=== PATIENT | female | born 1950 | race Caucasian/White ===

== ENCOUNTER 2022-09-09 09:16 | Outpatient (REF) | payer MEDICARE, BC, SELFPAY ==
[2022-09-09 14:46] LABS: HCT 44.6 % (36.0-46.0); HGB 14.6 g/dL (11.2-15.7); MCH 27.8 pg (27.0-33.0); MCHC 32.7 % (32.0-36.0); MCV 85 fL (80-95); MPV 10.2 fL (8.0-11.0); Platelet Count 230 10^3/uL (130-400); RBC 5.25 10^6/uL (3.93-5.22); RDW 13.4 % (11.7-14.6); RDW-SD 41.5 fL; WBC 5.84 10^3/uL (4.4-10.8)
[2022-09-09 15:00] LABS: ALT 54 U/L (14-59); AST 30 U/L (15-37); Albumin 4.1 g/dL (3.4-5.0); Alkaline Phosphatase 99 U/L (46-116); Anion Gap 9.1 mmol/L (3-11); BUN 22 mg/dL (7-18); Bilirubin, Total 0.5 mg/dL (0.2-1.0); CO2 26.9 mmol/L (21.0-32.0); CREATININE 0.5 mg/dL (0.55-1.02); Calcium 9.9 mg/dL (8.5-10.1); Chloride 106 mmol/L (98-107); Estimated GFR 98.97 (mL/min/1.73m2); Glucose 91 mg/dL (74-106); Lipase 30 U/L (16-77); Potassium 4.8 mmol/L (3.5-5.1); Sodium 142 mmol/L (136-145); Total Protein 6.8 g/dL (6.4-8.2)
== END 2022-09-09 09:17 | disposition home or self-care (01) ==
LOC: NCHCN 09:16
PROVIDERS: PCP Family Medicine; Visit Provider Family Medicine
DX: R10.9 Unspecified abdominal pain (principal); K82.4 Cholesterolosis of gallbladder; R11.0 Nausea
CPT/HCPCS: 80053; 83690; 85027

== ENCOUNTER 2022-12-07 17:54 | Outpatient (REF) | payer MEDICARE, BC, SELFPAY | END 2022-12-07 17:55 | disposition home or self-care (01) | LOC: NCHCN 17:54 | PROVIDERS: PCP Family Medicine; Visit Provider Family Medicine | DX: N39.0 Urinary tract infection, site not specified (principal) | CPT/HCPCS: 87086 ==

== ENCOUNTER 2023-02-02 14:38 | Outpatient (CLI) | payer MEDICARE, BC, SELFPAY ==
[2023-02-02 16:44] LABS: HCT 42.2 % (36.0-46.0); HGB 14.2 g/dL (11.2-15.7); MCH 28.6 pg (27.0-33.0); MCHC 33.6 % (32.0-36.0); MCV 85 fL (80-95); MPV 9.3 fL (8.0-11.0); Platelet Count 177 10^3/uL (130-400); RBC 4.97 10^6/uL (3.93-5.22); RDW 13.1 % (11.7-14.6); RDW-SD 40.5 fL; WBC 5.38 10^3/uL (4.4-10.8)
[2023-02-02 16:46] LABS: INR 0.9 (0.9-1.1); PTT Activated 25.1 sec (21.5-31.9); Prothrombin Time 9.4 sec (9.3-11.0)
[2023-02-02 17:18] LABS: Anion Gap 11.2 mmol/L (3-11); BUN 17 mg/dL (7-18); CO2 24.8 mmol/L (21.0-32.0); CREATININE 0.5 mg/dL (0.55-1.02); Calcium 9.6 mg/dL (8.5-10.1); Chloride 106 mmol/L (98-107); Estimated GFR 98.97 (mL/min/1.73m2); Glucose 103 mg/dL (74-106); Potassium 4.2 mmol/L (3.5-5.1); Sodium 142 mmol/L (136-145)
[2023-02-02 19:39] LABS: Vitamin D 25 Total 55.1 ng/mL (30-100)
== END 2023-02-02 14:39 | disposition home or self-care (01) ==
LOC: LBO 14:39
PROVIDERS: PCP Family Medicine; Visit Provider Nurse Practitioner
DX: E78.5 Hyperlipidemia, unspecified; D50.9 Iron deficiency anemia, unspecified; M54.2 Cervicalgia
CPT/HCPCS: 36415; 80048; 82306; 85027; 85025; 85610; 85730

== ENCOUNTER 2023-05-18 11:59 | Outpatient (REF) | payer MEDICARE, BC, SELFPAY ==
[2023-05-18 14:41] LABS: Iron 61 ug/dL (50-170); Total Iron Binding Capacity 331 ug/dL (250-450); Transferrin Sat 18 % (15-50)
[2023-05-18 15:05] LABS: Vitamin D 25 Total 50.8 ng/mL (30-100)
[2023-05-18 17:07] LABS: Ferritin 60 ng/mL (8-252); Folate > 20.0 ng/mL (8.6-20.0); Vitamin B12 1430 pg/mL (193-986)
[2023-05-22 22:55] LABS: Thiamine (Vitamin B1), WB 163 nmol/L (70-180)
== END 2023-05-18 12:00 | disposition home or self-care (01) ==
LOC: NCHCN 11:59
PROVIDERS: PCP Family Medicine; Visit Provider Family Medicine
DX: I44.4 Left anterior fascicular block (principal); M50.30 Other cervical disc degeneration, unspecified cervical region; R78.89 Finding of other specified substances, not normally found in blood; Z98.84 Bariatric surgery status
CPT/HCPCS: 82306; 82607; 82728; 82746; 83540; 83550; 84425

== ENCOUNTER → 2023-09-28 01:07 | Outpatient (CLI) | payer MEDICARE, BC, SELFPAY ==
--- NOTE | 2023-09-28 11:24 | DI.RAD_ITS ---
Exam(s) XR HIP LT COMPLETE AP PELVIS XR SACROILIAC JOINTS EXAM: XR HIP LT COMPLETE AP PELVIS CLINICAL HISTORY: PAIN LEFT HIP JOINT M25.552. TECHNIQUE: 2D digital imaging was performed. Five views. COMPARISON: CR XR SACROILIAC JOINTS from 09/28/2023 FINDINGS: BONES: No acute fracture is present. No bony destructive lesion is seen. Prior laminectomy and hard ahmadi noted lower lumbar spine. JOINTS: No dislocation present. Mild left hip joint space narrowing. Mild acetabular spurring. Mi ld spurring at the SI joints. No sclerosis or erosions. SOFT TISSUE: Rounded soft tissue calcification in soft tissues adjacent to ileum. IMPRESSION: Mild degenerative changes of the left hip and SI joints. DATA REPOSITORY: RADIATION DOSE DELIVERED:
== END ==
PROVIDERS: PCP Family Medicine; Visit Provider Family Medicine
DX: M16.12 Unilateral primary osteoarthritis, left hip (principal)
CPT/HCPCS: 72202; 73502

== ENCOUNTER 2024-01-25 15:30 | Outpatient (REF) | payer MEDICARE, BC, SELFPAY ==
[2024-01-25 16:06] LABS: Anion Gap 10.6 mmol/L (3-11); BUN 17 mg/dL (7-18); CO2 26.4 mmol/L (21.0-32.0); CREATININE 0.5 mg/dL (0.55-1.02); Calcium 9.6 mg/dL (8.5-10.1); Chloride 106 mmol/L (98-107); Estimated GFR 98.36 (mL/min/1.73m2); Glucose 88 mg/dL (74-106); Potassium 4.8 mmol/L (3.5-5.1); Sodium 143 mmol/L (136-145); TSH (W/Ref FT4) 1.02 uIU/mL (0.36-3.74)
[2024-01-26 14:09] LABS: Albumin 66.3 % (55.8-66.1); Albumin g/dL 4.5 g/dL (3.6-5.2); Total Protein 6.8 g/dL (6.3-8.2)
== END 2024-01-25 15:31 | disposition home or self-care (01) ==
LOC: NCHCN 15:30
PROVIDERS: PCP Family Medicine; Visit Provider Family Medicine
DX: G62.9 Polyneuropathy, unspecified (principal); E78.5 Hyperlipidemia, unspecified
CPT/HCPCS: 80048; 83735; 84165; 84443

== ENCOUNTER 2024-06-19 10:18 | Outpatient (CLI) | payer MEDICARE, BC, SELFPAY | END 2024-06-19 10:19 | disposition home or self-care (01) | PROVIDERS: PCP Family Medicine; Visit Provider Family Medicine | DX: R55 Syncope and collapse (principal) | CPT/HCPCS: 93246 ==

== ENCOUNTER 2024-07-03 10:12 | Outpatient (REF) | payer MEDICARE, BC, SELFPAY ==
[2024-07-04 15:34] LABS: Albumin 65.4 % (55.8-66.1); Albumin g/dL 4.3 g/dL (3.6-5.2); Total Protein 6.6 g/dL (6.3-8.2)
== END 2024-07-03 10:13 | disposition home or self-care (01) ==
LOC: NCHCN 10:12
PROVIDERS: PCP Family Medicine; Visit Provider Nurse Practitioner Family
DX: G62.9 Polyneuropathy, unspecified (principal)
CPT/HCPCS: 84165

== ENCOUNTER 2024-07-19 16:51 | Outpatient (CLI) | payer MEDICARE, BC, SELFPAY ==
[2024-07-19 16:21] LABS: Abs Immature Grans 0.02 10^3/uL (0.0-0.06); Absolute Basophil Count 0.04 10^3/uL (0.0-0.2); Absolute Lymphocyte Count 1.31 10^3/uL (1.2-3.4); Absolute Monocyte Count 0.33 10^3/uL (0.1-0.8); Absolute Neutrophil Count 3.65 10^3/uL (1.2-6.7); Basophils % 0.7 %; Eosinophils % 3.6 %; HCT 40.2 % (36.0-46.0); HGB 13.3 g/dL (11.2-15.7); Immature Grans % 0.4 %; Lymphocytes % 23.6 %; MCH 27.2 pg (27.0-33.0); MCHC 33.1 % (32.0-36.0); MCV 82 fL (80-95); MPV 8.7 fL (8.0-11.0); Monocytes % 5.9 %; Neutrophils % 65.8 %; Platelet Count 145 10^3/uL (130-400); RBC 4.89 10^6/uL (3.93-5.22); RDW 14.6 % (11.7-14.6); WBC 5.55 10^3/uL (4.4-10.8)
[2024-07-19 16:54] LABS: ALT 26 U/L (14-59); AST 18 U/L (15-37); Albumin 3.9 g/dL (3.4-5.0); Alkaline Phosphatase 89 U/L (46-116); Anion Gap 11.2 mmol/L (3-11); BUN 24 mg/dL (7-18); Bilirubin, Total 0.76 mg/dL (0.2-1.0); CO2 23.8 mmol/L (21.0-32.0); CREATININE 0.8 mg/dL (0.55-1.02); Calcium 9.4 mg/dL (8.5-10.1); Chloride 106 mmol/L (98-107); Estimated GFR 76.79 (mL/min/1.73m2); Glucose 141 mg/dL (74-106); Potassium 4.3 mmol/L (3.5-5.1); Sodium 141 mmol/L (136-145); Total Protein 6.6 g/dL (6.4-8.2)
[2024-07-20 19:24] LABS: HIV-1/2 Ag & Ab Screen Negative (Negative)
[2024-07-23 10:02] LABS: IgA 97 mg/dL (85-499); IgG 507 mg/dL (610-1616); IgM 17 mg/dL (35-242); Kappa Free Light Chain 1.08 mg/dL (0.33-1.94); Lambda Free Light Chain 0.89 mg/dL (0.57-2.63)
[2024-07-23 12:17] LABS: Lyme Ab w Rflx to Lyme Confirm Negative (Negative)
[2024-07-23 14:42] LABS: ANA Interpretation Negative (Negative)
[2024-07-23 15:43] LABS: Albumin 67.1 % (55.8-66.1); Albumin g/dL 4.1 g/dL (3.6-5.2); Immunotyping, Serum (See Note); Total Protein 6.1 g/dL (6.3-8.2)
== END 2024-07-19 16:52 | disposition home or self-care (01) ==
LOC: LBO 16:53
PROVIDERS: PCP Family Medicine; Visit Provider Family Medicine
DX: D80.1 Nonfamilial hypogammaglobulinemia (principal); R53.83 Other fatigue
CPT/HCPCS: 36415; 80053; 82784; 87389; 83883; 84155; 84165; 85025; 86038; 86320; 86618

== ENCOUNTER 2024-07-26 00:08 | Outpatient (CLI) | payer MEDICARE, BC, SELFPAY ==
--- NOTE | 2024-07-26 | DI.CT_ITS ---
Exam(s) CT ABDOMEN PELVIS W EXAM: CT ABDOMEN PELVIS W CLINICAL HISTORY: SPLENOMEGALY, R16.1, PROFOUND FATIGUE, LT SIDE ABD PAIN. TECHNIQUE: Imaging Protocol: Axial computed tomography images with coronal and sagittal reformatted images were created and reviewed CONTRAST MATERIAL: Intravenous: Omnipaque 350 Contrast volume:75 ml Oral: yes COMPARISON: No exams were available for comparison FINDINGS: ABDOMEN and PELVIS: Lung Bases: No acute findings. Elevated right diaphragm. Liver: Elongated right lobe of the liver. Overall normal liver size. Normal density. No suspicious mass. Portal vein appears normal. Gallbladder and biliary tract: No radiodense calculus. No biliary dilation. Pancreas: Normal density. No abnormal calcifications or inflammatory process. No evidence of mass. Spleen: Enlarged at 20 cm in length. The lesion. Normal attenuation. Small accessory spleen seen at the hilum. Splenic vein and artery appear intact. Kidneys: Normal size, contour and axis. No radiodense stones. No obstructive uropathy. No suspicious masses seen. Adrenal glands: No masses seen. Vasculature: Abdominal aorta non-dilated. Soft tissues: Small fat containing umbilical hernia. Small small fat containing hernia above the lev el of the umbilicus. Bladder: No gross wall thickening. No calculi.No focal mass. Bowel: Suture material at fundus of stomach. No obstruction. No bowel wall thickening. Appendix no rmal. Mild diverticulosis. No evidence of diverticulitis. Normal quantity of stool. Peritoneal cavity: No ascites. No focal collection. No mesenteric inflammatory response. No free air . Bones: Postsurgical and degenerative changes. Reproductive organs: Retroverted uterus with small fibroids. Lymph nodes: No pathologically enlarged lymph nodes. IMPRESSION:: Splenomegaly. No focal splenic lesion. No evidence of adenopathy. Unexpected findings RADIATION DOSE DELIVERED: 950.65mGy.cm Total DLP DATA REPOSITORY: All CT scans at this facility are submitted to the National Radiology Data Registry (NRDR) Dose Index Registry (DIR) with the [employer] (A[employer]). RADIATION OPTIMIZATION: All CT scans at this facility use at least one of these dose optimization te chniques: automated exposure control; mA and/or kV adjustment per patient size (includes targeted exa ms where dose is matched to clinical indication); or iterative reconstruction.
[2024-07-26] MEDS: Barium Sulfate 2% W/V-Creamy Vanilla Smoothie 450 ML BTL PO ×2 (08:52→08:53)
[2024-07-26] MEDS: Omnipaque 350 MG/ML 100 ML BTL IJ (10:34)
[2024-07-26] MEDS: Normal Saline - Diluent 50 ML VIAL IJ (10:36)
== END 2024-07-26 00:28 ==
LOC: DI 00:08
PROVIDERS: PCP Family Medicine; Visit Provider Family Medicine
DX: R16.1 Splenomegaly, not elsewhere classified (principal)
CPT/HCPCS: 74177; J3490

== ENCOUNTER 2024-08-06 21:11 | Outpatient (REF) | payer MEDICARE, BC, SELFPAY ==
[2024-08-06 21:23] LABS: ESR 9 mm/hr (0-30)
[2024-08-06 21:57] LABS: Calculated LDL 109 mg/dL (<100); Cholesterol 183 mg/dL (<200); HDL Cholesterol 51 mg/dL (40-60); Triglyceride 117 mg/dL (<150)
[2024-08-06 22:08] LABS: LDH 289 U/L (81-234); Uric Acid 4.8 mg/dL (2.6-6.0)
[2024-08-07 17:32] LABS: CRP, High Sensitivity 3.51 mg/L (See Note)
[2024-08-07 19:08] LABS: Hepatitis C Ab w Rflx HCV PCR Negative (Negative)
[2024-08-08 12:08] LABS: EBNA IgG Positive (Negative); EBV Interpretation (See Note); VCA IgG Positive (Negative); VCA IgM Negative (Negative)
[2024-08-09 10:40] LABS: CMV Ab, IgG Negative (Negative); CMV Ab, IgM Negative (Negative)
== END 2024-08-06 21:12 | disposition home or self-care (01) ==
LOC: NCHCN 21:11
PROVIDERS: PCP Family Medicine; Visit Provider Family Medicine
DX: R16.1 Splenomegaly, not elsewhere classified (principal); Z13.220 Encounter for screening for lipoid disorders; L28.2 Other prurigo
CPT/HCPCS: 80061; 85652; 86141; 86803; 83615; 84550; 86644; 86645; 86664; 86665

== ENCOUNTER 2024-08-08 02:12 | Outpatient (CLI) | payer MEDICARE, BC, SELFPAY ==
--- NOTE | 2024-08-08 | DI.RAD_ITS ---
Exam(s) XR CHEST 2V PA LATERAL EXAM: XR CHEST 2V PA LATERAL CLINICAL HISTORY: ? CAUSE OF SPLENOMEGALY,R16.1,FATIGUE,RASH,? INFECTION,LYMPHADENOPATHY, TECHNIQUE: 2D digital imaging was performed of the chest. Two images were obtained. PA and lateral views were obtained. COMPARISON: CT CT ABDOMEN PELVIS W from 07/26/2024 FINDINGS: MEDIASTINUM: Normal. HEART: Normal. PULMONARY VASCULATURE: Normal. LUNGS: Clear. PLEURAL SPACE: No pleural effusion or pneumothorax. BONE:Within normal limits for the patient's age. Postsurgical changes of a anterior cervical disc fu pollo are present. OTHER FINDINGS:There is stable elevation of the right hemidiaphragm. IMPRESSION: No acute pulmonary findings. DATA REPOSITORY: RADIATION DOSE DELIVERED:
== END 2024-08-08 02:32 ==
LOC: DI 02:12
PROVIDERS: PCP Family Medicine; Visit Provider Family Medicine
DX: R16.1 Splenomegaly, not elsewhere classified (principal)
CPT/HCPCS: 71046

== ENCOUNTER 2024-08-08 04:03 | Outpatient (CLI) | payer MEDICARE, BC, SELFPAY ==
[2024-08-09 18:36] LABS: Bile Acids, Total 9 mcmol/L (<=10)
== END 2024-08-08 04:04 | disposition home or self-care (01) ==
PROVIDERS: PCP Family Medicine; Visit Provider Family Medicine
DX: R16.1 Splenomegaly, not elsewhere classified (principal); Z13.220 Encounter for screening for lipoid disorders; L28.2 Other prurigo
CPT/HCPCS: 36415; 71046; 82239

== ENCOUNTER 2024-08-14 16:58 | Outpatient (REF) | payer MEDICARE, BC, SELFPAY ==
--- NOTE | 2024-08-14 15:00 | SKI_PTH ---
PATIENT: Beata Alonzo LOC: [facility] U#:[id number] AGE/SX: 74/F ROOM: RE08/14/[address]: Jennifer Fisher : 1950 BED: DIS: 08/14/2024 SPEC #: [id number] RECD: 08/15/24 12:41 STATUS: BRAXTON HENRY #: [id number] JEIN: 08/14/24 15:[address]: Jennifer Fisher DEPT: Surgical Specimen RECD BY: Kayla Peguero Tissues: 1 - SKIN BIOPSY(SHAVE/PUNCH) 2 - SKIN BIOPSY(SHAVE/PUNCH) Procedures: SKIN LEVEL 4 Comments: [id number]
== END 2024-08-14 16:59 | disposition home or self-care (01) ==
LOC: NCHCN 16:58
PROVIDERS: PCP Family Medicine; Visit Provider Family Medicine
DX: L28.2 Other prurigo (principal)
CPT/HCPCS: 88305

== ENCOUNTER 2024-08-16 08:52 | Outpatient (CLI) | payer MEDICARE, BC, SELFPAY ==
--- NOTE | 2024-08-16 09:03 | CER_ITS ---
Date of service: 08/16/24 Time of Service: 09:03 Cardiac Event Recorder Referring Provider:: Jennifer Fisher Indications:: Syncope Cardiac Event Note: This is a cardiac event monitor. Patient was monitored for 11 days and 23 hours. Rhythm throughout was sinus with an average heart rate of 73. Minimum was 45, maximum 134 There were rare ventricular ectopic beats There were occasional atrial premature beats. Self-limited atrial runs occu rred. The longest of these was 20 beats in duration There was no atrial fibrillation, no high-grade AV block, no pauses greater than 3 seconds. No symptoms were reported
== END 2024-08-16 08:53 | disposition home or self-care (01) ==
LOC: CARDOPNVT 08:52
PROVIDERS: PCP Family Medicine; Visit Provider Internal Medicine Cardiovascular Disease
DX: R55 Syncope and collapse (principal); I49.1 Atrial premature depolarization
CPT/HCPCS: 93248

== ENCOUNTER 2024-08-22 15:40 | Outpatient (CLI) | payer MEDICARE, BC, SELFPAY ==
[2024-08-22 16:59] LABS: Ferritin 75 ng/mL (8-252)
[2024-08-23 16:33] LABS: Leukemia/Lymphoma by FC (Blood (See below)
== END 2024-08-22 15:41 | disposition home or self-care (01) ==
LOC: LBO 15:43
PROVIDERS: PCP Family Medicine; Visit Provider Family Medicine
DX: R16.1 Splenomegaly, not elsewhere classified (principal)
CPT/HCPCS: 36415; 88185; 82728; 88184; 88189

== ENCOUNTER 2024-11-01 14:31 | Outpatient (REF) | payer MEDICARE, BC, SELFPAY ==
[2024-11-01 15:27] LABS: Abs Immature Grans 0.02 10^3/uL (0.0-0.06); Absolute Basophil Count 0.04 10^3/uL (0.0-0.2); Absolute Eosinophil Count 0.24 10^3/uL (0.0-0.7); Absolute Lymphocyte Count 1.26 10^3/uL (1.2-3.4); Absolute Monocyte Count 0.34 10^3/uL (0.1-0.8); Absolute Neutrophil Count 1.91 10^3/uL (1.2-6.7); Eosinophils % 6.3 %; HCT 36.5 % (36.0-46.0); HGB 11.3 g/dL (11.2-15.7); Immature Grans % 0.5 %; Lymphocytes % 33.1 %; MCV 81 fL (80-95); MPV 9.3 fL (8.0-11.0); Monocytes % 8.9 %; Neutrophils % 50.2 %; Platelet Count 152 10^3/uL (130-400); RBC 4.52 10^6/uL (3.93-5.22); RDW 16.1 % (11.7-14.6); RDW-SD 47.3 fL; WBC 3.81 10^3/uL (4.4-10.8)
[2024-11-01 16:06] LABS: Anion Gap 10.5 mmol/L (3-11); BUN 17 mg/dL (7-18); CO2 28.5 mmol/L (21.0-32.0); CREATININE 0.6 mg/dL (0.55-1.02); Calcium 10.1 mg/dL (8.5-10.1); Chloride 106 mmol/L (98-107); Estimated GFR 93.55 (mL/min/1.73m2); Ferritin 97 ng/mL (8-252); Glucose 105 mg/dL (74-106); Potassium 4.8 mmol/L (3.5-5.1); Sodium 145 mmol/L (136-145)
[2024-11-01 16:12] LABS: Iron 32 ug/dL (50-170); Total Iron Binding Capacity 329 ug/dL (250-450); Transferrin Sat 10 % (15-50)
== END 2024-11-01 14:32 | disposition home or self-care (01) ==
LOC: NCHCN 14:31
PROVIDERS: PCP Family Medicine; Visit Provider Family Medicine
DX: I10 Essential (primary) hypertension (principal); R16.1 Splenomegaly, not elsewhere classified
CPT/HCPCS: 80048; 82728; 83540; 83550; 85025

== ENCOUNTER 2025-02-13 02:40 | Outpatient (CLI) | payer MEDICARE, BC, SELFPAY ==
[2025-02-13 09:32] LABS: Abs Immature Grans 0.01 10^3/uL (0.0-0.06); HCT 37.9 % (36.0-46.0); HGB 11.6 g/dL (11.2-15.7); Immature Grans % 0.1 %; MCH 22.0 pg (27.0-33.0); MCHC 30.6 % (32.0-36.0); MCV 72 fL (80-95); MPV 9.1 fL (8.0-11.0); Platelet Count 564 10^3/uL (130-400); RBC 5.28 10^6/uL (3.93-5.22); RDW 16.6 % (11.7-14.6); RDW-SD 41.9 fL; WBC 8.39 10^3/uL (4.4-10.8)
[2025-02-13 10:02] LABS: ALT 103 U/L (14-59); AST 52 U/L (15-37); Albumin 3.7 g/dL (3.4-5.0); Alkaline Phosphatase 381 U/L (46-116); Anion Gap 8.7 mmol/L (3-11); BUN 19 mg/dL (7-18); Bilirubin, Total 0.5 mg/dL (0.2-1.0); CO2 27.3 mmol/L (21.0-32.0); Calcium 9.7 mg/dL (8.5-10.1); Chloride 104 mmol/L (98-107); Estimated GFR 97.75 (mL/min/1.73m2); Ferritin 14 ng/mL (8-252); Glucose 100 mg/dL (74-106); Potassium 4.2 mmol/L (3.5-5.1); Sodium 140 mmol/L (136-145); Total Protein 7.1 g/dL (6.4-8.2)
[2025-02-13 10:12] LABS: Anisocytosis 1+; Microcytosis 2+; Ovalocytes 2+
== END 2025-02-13 02:41 | disposition home or self-care (01) ==
LOC: LBO 02:40
PROVIDERS: PCP Family Medicine; Visit Provider Nurse Practitioner Family
DX: D64.9 Anemia, unspecified (principal); R16.1 Splenomegaly, not elsewhere classified
CPT/HCPCS: 36415; 80053; 82728; 85025

== ENCOUNTER 2025-03-04 16:21 | Emergency (ER) | payer MEDICARE, BC, SELFPAY ==
[2025-03-04 16:24] VITALS: BP 160/68; PULSE 105; RESP 16; TEMP 36.7; O2SAT 93
[2025-03-04 18:00] VITALS: BP 135/73; PULSE 72; RESP 16; O2SAT 94
[2025-03-04] MEDS: Oxymetazolone 0.05% SPRAY 15 ML BTL NS (18:59)
[2025-03-04] MEDS: Silver Nitrate Stick 1 EACH (20:41)
[2025-03-04 20:49] VITALS: BP 143/88; PULSE 70; RESP 16; O2SAT 96
--- NOTE | 2025-03-04 23:12 | W.ED.GENAD ---
Discharge Plan Disposition Patient Disposition: Home Discharge Details Clinical Impression: Epistaxis Primary Care Provider: Jennifer Fisher ED Provider: Erma Cervantes Home Meds and New Rx's Prescriptions: No Action losartan 100 mg tablet 100 mg PO DAILY duloxetine 60 mg capsule,delayed release(DR/EC) 60 mg PO DAILY cholecalciferol (vitamin D3) 50 mcg (2,000 unit) tablet 50 mcg PO DAILY mecobalamin (vitamin B12) [B12 Active] 1 tab PO DAILY clobetasol 0.05 % cream 1 applic TOPICAL BID Patient Comments: APPLY A THIN LAYER TO THE AFFECTED AREA(S) BY TOPICAL ROUTE 2 TIMES PER DAY NEEDED, do not use for longer than 2 weeks in a row. magnesium 1 tab PO DAILY [place]-3 350 mg-235 mg- 90 mg-597 mg capsule,delayed release(DR/EC) 1 cap PO DAILY Discharge Instructions Instructions: Nosebleeds ED Additional Instructions: Please call your primary care provider first thing in the morning to schedule follow-up appointment We were able to localize a small area that was bleeding in your left nare. This was cauterized using silver nitrate. Do not blow your nose, pick at your nose, or insert in anything into your nose for the next 2 to 3 days. If you develop a nosebleed please apply the clamp for 15 minutes (no peeking!); if nosebleeds persist, you may use the Afrin 2 sprays and then reapply the clamp. I recommend the use humidifier at bedside. A thin layer of Vaseline in your nasal passages may also help with dryness and prevent rebleeding. Return to emergency care if you develop new uncontrollable nosebleeds, lightheadedness/palpitations, other sources of bleeding such as gum bleeding or rectal bleeding, or if you are very worried you need to be rechecked again immediate Referrals: Jennifer Fisher [Primary Care Provider, Medicine] Discharge Data Discharge Date/Time-TO BE ENTERED AT DEPARTURE: 03/04/25 20:49 HPI General Date/Time Provider Initiated Documentation: 03/04/25 17:01. HPI Narrative: Beata is a 74-year-old female who presents to the emergency department today for evaluation of epistaxis. She reports that she has had frequent nosebleeds for the last week, initially mild but has intensified over the weekend. Yesterday she had 3 episodes, today 2 episodes. Most recent 1 occurred 2 hours ago and being the most severe. Bleeding is attributed to a sore spot under the nasal bone in the left nare. She denies associated fever/chills, dizziness, fainting spells, gum bleeding, bruising, rectal bleeding, hematuria, chest pain, palpitations, nausea/vomiting, abdominal pain. She was sent to the emergency department by PCP for cauterization. PMH significant for HTN, anemia, and lymphoma. She is on baby aspirin daily. She had had a splenectomy in 2024. Related Data Home Medications ?Medication ?Instructions ?Recorded ?Confirmed cholecalciferol (vitamin D3) 50 50 mcg PO DAILY 03/04/25 03/04/25 mcg (2,000 unit) tablet clobetasol 0.05 % topical cream 1 applic topical BID 03/04/25 03/04/25 duloxetine 60 mg capsule,delayed 60 mg PO DAILY 03/04/25 03/04/25 release losartan 100 mg tablet 100 mg PO DAILY 03/04/25 03/04/25 magnesium 1 tab PO DAILY 03/04/25 03/04/25 mecobalamin (vitamin B12) 1 tab PO DAILY 03/04/25 03/04/25 omega 3 350 mg-dha 235 mg-epa 90 1 cap PO DAILY 03/04/25 03/04/25 mg-fish oil 597 mg capsule,delay rel ([place]-3) Allergies Allergy/AdvReac Type Severity Reaction Status Date / Time nickel Allergy Intermediate Skin Rash Unverified 03/04/25 16:27 lisinopril AdvReac Intermediate Other (See Verified 03/04/25 16:27 Comment) General Stated Complaint: Epistaxis LAKHWINDER: 3 Exam Narrative Exam Narrative: General Appearance: Normal. Pt very well appearing, in no acute distress Vital signs: Within normal limits. Tachycardia initially upon arrival, resolved. HEENT: 1 cm linear superficial laceration noted to nasal septum in left nare. Scant active bleeding, scant bloody mucus noted in posterior oropharynx. Skin: Warm and dry, no rash. Psychiatric: Normal. Course Vital Signs Vital signs: Vital Signs Temperature 36.7 C 03/04/25 16:24 Pulse 105 H 03/04/25 16:24 Respiratory Rate 16 03/04/25 16:24 Blood Pressure 160/68 H 03/04/25 16:24 Pulse Oximetry 93 08/04/25 16:24 Temperature 36.7 C 03/04/25 16:24 Temperature Source Oral 03/04/25 16:24 Pulse 70 03/04/25 20:49 Respiratory Rate 16 03/04/25 20:49 Blood Pressure 143/88 H 03/04/25 20:49 Blood Pressure Mean 93 03/04/25 18:00 Blood Pressure Position Sitting 03/04/25 18:00 Pulse Oximetry 96 03/04/25 20:49 Oxygen Delivery Method Room Air 03/04/25 16:24 Oxygen Flow Rate 0 03/04/25 16:24 Pain Level 0 03/04/25 16:24 Medical Decision Making Initial Assessment: 74-year-old female with frequent nosebleeds for the past week, most severe episode today. No unusual dizziness or other bleeding symptoms. On baby aspirin. History and presentation consistent with uncomplicated anterior epistaxis. No unusual dizziness or other bleeding symptoms concerning for acutely worsening anemia/thrombocytopenia or liver dysfunction requiring emergent blood work at this time. History not concerning for traumatic origin of epistaxis Patient was observed in the emergency department, she did develop some increased bleeding. 2 sprays of Afrin and nasal clamp provided with good cessation of epistaxis. At this time it was possible to visualize the superficial laceration and on the nasal septum, which was cauterized with silver nitrate. Patient was observed further, no repeat bleeding. I did provide extensive education on management of epistaxis with patient, who had been blowing her nose and tilting her head back to manage nosebleeds, which is likely contributory to the blood noted in the mucus in the back of her throat. I reviewed use of nasal clamp, Afrin, tilting head forward, and environmental changes such as humidifier. Clinical Impression: - Anterior epistaxis Disposition: Recommend close follow-up with PCP and ENT referral for further evaluation/management. Provided Afrin and nasal clamp, along with instructions on use. Reviewed red flags indicate need for return to emergency care. Patient voices agreement with plan of care - Discharge home. Return if bleeding persists or worsens. - Follow-Up: Follow up with cancer center for lymphoma care. Patient Education: Nosebleed management. Return precautions discussed. Patient consented to the use of JAK PFSH All Active Problems (Updated 03/04/25 @ 20:34 by Erma Lino) Epistaxis (Acute) Social History Smoking/Tobacco Use Status: Former Tobacco Use Quit Date: 05/04/93 Smoking risk assessment performed?: Yes Alcohol Intake: never Drug use: Never Substance use type: does not use Do you feel safe at home: Yes Do you feel safe in your relationship?: Yes
== END 2025-03-04 20:49 | disposition home or self-care (01) ==
PROVIDERS: Emergency Provider Nurse Practitioner Family; PCP Family Medicine
DX: R04.0 Epistaxis (principal); I10 Essential (primary) hypertension
CPT/HCPCS: 30903

== ENCOUNTER 2025-04-17 02:13 | Outpatient (CLI) | payer MEDICARE, BC, SELFPAY ==
[2025-04-17 08:07] LABS: Abs Immature Grans 0.02 10^3/uL (0.0-0.06); HCT 44.0 % (36.0-46.0); HGB 14.4 g/dL (11.2-15.7); Immature Grans % 0.2 %; MCH 26.5 pg (27.0-33.0); MCHC 32.7 % (32.0-36.0); MCV 81 fL (80-95); MPV 8.9 fL (8.0-11.0); Platelet Count 472 10^3/uL (130-400); RBC 5.44 10^6/uL (3.93-5.22); RDW 24.5 % (11.7-14.6); RDW-SD 67.3 fL; WBC 9.64 10^3/uL (4.4-10.8)
[2025-04-17 08:39] LABS: ALT 73 U/L (14-59); AST 42 U/L (15-37); Albumin 3.7 g/dL (3.4-5.0); Alkaline Phosphatase 227 U/L (46-116); Anion Gap 6.9 mmol/L (3-11); BUN 18 mg/dL (7-18); Bilirubin, Total 0.5 mg/dL (0.2-1.0); CO2 29.1 mmol/L (21.0-32.0); Calcium 10.0 mg/dL (8.5-10.1); Chloride 105 mmol/L (98-107); Estimated GFR 97.14 (mL/min/1.73m2); Ferritin 62 ng/mL (8-252); Glucose 98 mg/dL (74-106); Potassium 4.4 mmol/L (3.5-5.1); Sodium 141 mmol/L (136-145); Total Protein 6.8 g/dL (6.4-8.2)
[2025-04-17 08:48] LABS: Acanthocytes 1+
[2025-04-17 08:49] LABS: Anisocytosis 2+; Ovalocytes 2+
[2025-04-17 08:50] LABS: Schistocytes 1+
== END 2025-04-17 02:14 | disposition home or self-care (01) ==
LOC: LBO 02:13
PROVIDERS: PCP Family Medicine; Visit Provider Nurse Practitioner Family
DX: D64.9 Anemia, unspecified (principal); R16.1 Splenomegaly, not elsewhere classified
CPT/HCPCS: 36415; 80053; 82728; 85025

== ENCOUNTER 2025-07-04 15:40 | Inpatient (IN) | payer MEDICARE, BC, SELFPAY ==
[2025-07-04] VITALS (37 sets, daily range): BP systolic 127–164; BP diastolic 46–138; PULSE 84–102; RESP 15–29; TEMP 36.9–37.1; O2SAT 89–96
--- NOTE | 2025-07-04 15:45 | DI.RAD_ITS ---
Exam(s) XR PORTABLE CHEST AP EXAM: XR PORTABLE CHEST AP CLINICAL HISTORY: Shortness of breath TECHNIQUE: 2D digital imaging was performed of the chest. One image was obtained. An AP view was obtained. COMPARISON: CR XR CHEST 2V PA LATERAL from 08/08/2024 FINDINGS: MEDIASTINUM: Normal. HEART: Normal. PULMONARY VASCULATURE: Normal. LUNGS: Clear. PLEURAL SPACE: No pleural effusion or pneumothorax. BONE:Within normal limits for the patient's age. OTHER FINDINGS:There is again seen elevation of the right hemidiaphragm. There are dilated loops of small and large bowel beneath the hemidiaphragm which may represent an ileus. IMPRESSION: No acute pulmonary findings. DATA REPOSITORY: RADIATION DOSE DELIVERED:
--- NOTE | 2025-07-04 15:45 | RT.EKG_ITS ---
APPROVED REPORT Exam: Resting ECG Reason for Exam: Chest pain Patient Location: E HR:101 bpm ECG Measurements Heart Rate 101 AXIS [place] 159 P 13 QRSd 91 QRS -54 QT 334 T 81 QTc 434 Conclusion Sinus tachycardia...rate> 99 Left anterior fascicular block...axis(240,-40), init forces inf Probable left ventricular hypertrophy...(RaVL+SV3)xQRSd >300 No Occlusion [place]
--- NOTE | 2025-07-04 15:47 | W.ED.GENAD ---
Discharge Plan Discharge Details Chief Complaint: RespSymp Primary Care Provider: Jennifer Fisher ED Provider: Ryland Lovell Home Meds and New Rx's Prescriptions: No Action multivitamin Tablet 1 tab PO DAILY acetaminophen [Tylenol] 325 mg tablet 325 mg PO Q6H PRN hydroxyzine HCl 25 mg tablet 25 mg PO TID PRN aspirin 81 mg tablet 81 mg PO DAILY calcium citrate 200 mg (950 mg) tablet 400 mg PO BID losartan 100 mg tablet 100 mg PO DAILY duloxetine 60 mg capsule,delayed release(DR/EC) 60 mg PO DAILY cholecalciferol (vitamin D3) 50 mcg (2,000 unit) tablet 50 mcg PO DAILY mecobalamin (vitamin B12) [B12 Active] 1 tab PO DAILY clobetasol 0.05 % cream 1 applic TOPICAL BID Patient Comments: APPLY A THIN LAYER TO THE AFFECTED AREA(S) BY TOPICAL ROUTE 2 TIMES PER DAY NEEDED, do not use for longer than 2 weeks in a row. magnesium 1 tab PO HS [place]-3 350 mg-235 mg- 90 mg-597 mg capsule,delayed release(DR/EC) 1 cap PO DAILY Dupixent Pen 200 mg/1.14 mL pen injector 200 mg subcut ONCE HPI General Date/Time Provider Initiated Documentation: 07/04/25 15:47. HPI Narrative: MDM Overall well-appearing normothermic mildly tachycardic asplenic 59-year-old female with shortness of breath. Patient however will obtain chest x-ray and given asplenia chest x-ray it is unremarkable will increase CT scan with or without IV contrast D-dimer. Patient does have some left-sided chest pain so we will obtain a EKG and troponin to assess for ACS. No pain out of proportion to suggest necrotizing soft tissue infection. No black or bloody stools to suggest increased risk for GI bleed. I considered sepsis however patient is quite well-appearing so we will defer broad-spectrum antibiotics blood cultures and lactate. Patient denies recent travel so I am not suspicious for atypical infection. Venous gas ordered to calculate PSI score if pt has PNA. No LE edema nor hx of CHF to suggest CXR so will defer POCUS. No wheezes nor hx of RAD to suggest exacerbtion of RAD. GARDNER was not sudden onset to suggest increased risk for SAH. No chiropracic manipulation to suggest increased risk for cervical arterial dissection. No gross neuro deficits to suggest CVA. Plan: CT scan w/ or w/out contrast based on d-dimer results consider CT abd pelvis given abnormal CXR. If PNA+ pt will liklely benefit from hospitalization given elevatd PSI/PORT score from hx of neoplastic disease. Diagnostic interpretations performed by me: Per my independent interpretation chest x-ray shows: Dilated bowl on CXR Per my independent interpretation EKG shows: arrow complex NSR @ 101. No prior for comparison. TWI in aVL. HPI This is a patient with a history of lymphoma presenting with shortness of breath. The patient reports experiencing shortness of breath for the past week, which has worsened significantly today. He has been coughing tremendously, initially producing clear sputum which turned yellow yesterday. He also reports a splitting headache that has been intermittent over the past few days and was particularly severe this afternoon. Additional symptoms include a sore throat and a temperature ranging between 99?F and 100?F. The patient has experienced some discomfort in the left side of his chest but reports no nausea, vomiting, or history of blood clots in his legs or lungs. He is not currently on anticoagulant therapy and reports no presence of black or bloody stools. The patient smokes cigarettes for 20 years until he was 89 but has no history of asthma or COPD. He has been managing his headache with Tylenol, last taken at 8 AM today. The patient has a known diagnosis of lymphoma and underwent splenectomy 7 months ago. He is scheduled to receive his final vaccine in 08/2025. PAST SURGICAL HISTORY: Splenectomy 7 months ago. Exam General: Elderly-appearing in no acute distress speaking in complete sentences. Head: Normocephalic, atraumatic. Eye: Extraocular eye movements intact. No conjunctival injection. No scleral icterus. Ear, nose, mouth, throat: Grossly normal inspection. Normal voice, handling secretions normally. Neck: Trachea midline. Cardiovascular: Well-perfused distal extremities. Rapid regular rate. Respiratory: Nonlabored respiration. Decreased breath sounds bilateral bases. No wheezes. Gastrointestinal: Nondistended abdomen. Soft non-tender Musculoskeletal: No significant lower extremity edema. Moving all 4 extremities spontaneously. Skin: Normal for age and race, grossly normal temperature and turgor. No acute rash. Neurologic: Alert and appropriate, no apparent acute deficits. Psychiatric: Mood and manner are appropriate. Grooming and personal hygiene are appropriate. Related Data Home Medications ?Medication ?Instructions ?Recorded ?Confirmed cholecalciferol (vitamin D3) 50 50 mcg PO DAILY 03/04/25 07/04/25 mcg (2,000 unit) tablet clobetasol 0.05 % topical cream 1 applic topical BID 03/04/25 07/04/25 duloxetine 60 mg capsule,delayed 60 mg PO DAILY 03/04/25 07/04/25 release losartan 100 mg tablet 100 mg PO DAILY 03/04/25 07/04/25 magnesium 1 tab PO HS 03/04/25 07/04/25 mecobalamin (vitamin B12) 1 tab PO DAILY 03/04/25 07/04/25 omega 3 350 mg-dha 235 mg-epa 90 1 cap PO DAILY 03/04/25 07/04/25 mg-fish oil 597 mg capsule,delay rel ([place]-3) acetaminophen 325 mg tablet 325 mg PO Q6H PRN 03/08/25 07/04/25 (Tylenol) aspirin 81 mg tablet 81 mg PO DAILY 03/08/25 07/04/25 calcium citrate 400 mg PO BID 03/08/25 07/04/25 hydroxyzine HCl 25 mg tablet 25 mg PO TID PRN 03/08/25 07/04/25 multivitamin 1 tab PO DAILY 03/08/25 07/04/25 dupilumab 200 mg/1.14 mL 200 mg subcut ONCE 07/04/25 07/04/25 subcutaneous pen injector ([employer]) Allergies Allergy/AdvReac Type Severity Reaction Status Date / Time nickel Allergy Intermediate Skin Rash Unverified 07/04/25 15:51 fluconazole Allergy Unknown Hives Unverified 07/04/25 15:51 hydrochlorothiazide Allergy Unknown Unknown Unverified 07/04/25 15:51 lisinopril AdvReac Intermediate Other (See Verified 07/04/25 15:51 Comment) General Stated Complaint: RespSymp LAKHWINDER: 3 Course Vital Signs Vital signs: Vital Signs Temperature 36.9 C 07/04/25 15:42 Pulse 102 H 07/04/25 15:42 Respiratory Rate 18 07/04/25 15:42 Blood Pressure 163/84 H 07/04/25 15:42 Pulse Oximetry 90 L 07/04/25 15:42 Temperature 36.9 C 07/04/25 15:45 Pulse 102 H 07/04/25 15:45 Respiratory Rate 18 07/04/25 15:45 Blood Pressure 163/84 H 07/04/25 15:45 Pulse Oximetry 90 L 07/04/25 15:45 Pain Level 0 07/04/25 15:45 PFSH All Active Problems (Updated 04/15/25 @ 14:56 by Martha Braxton NP) Left-sided epistaxis (Acute) Medical History (Updated 04/15/25 @ 14:56 by Martha Braxton NP) Weakness of both lower limbs Age-related nuclear cataract, bilateral Retinal artery branch occlusion, bilateral Spleen absent Osteopenia Neuropathic pain Disorder of spinal region Spinal stenosis of lumbar region Idiopathic osteoarthritis Pruritic rash Mass of ovary Postoperative malabsorption Cholesterolosis of gallbladder GERD (gastroesophageal reflux disease) Atherosclerosis of artery Left anterior fascicular block (LAFB) Meibomian gland dysfunction (MGD) Primary angle-closure glaucoma Demyelinating disease of central nervous system Anxiety Simple obesity Mixed hyperlipidemia Vitamin D deficiency Splenic marginal zone b-cell lymphoma Appendicitis Iron deficiency anemia Splenomegaly Atypical chest pain Cervical stenosis of spinal canal Radiculopathy of cervical region Chest pain Nausea without vomiting Stenosis of cervical spine with myelopathy Spondylolisthesis at L3-L4 level Solar lentigo Xerosis cutis Lymphocytic colitis Diarrhea Diverticulitis of sigmoid colon Right knee pain Osteoarthritis of knee Lichen planus Rotator cuff tear Hearing loss Vertigo Depression Chronic neck pain HTN (hypertension) Fibromyalgia Shoulder pain Surgical History (Updated 03/08/25 @ 13:26 by Elisa Contreras RN) History of carpal tunnel surgery Status post lumbar laminectomy History of splenectomy History of lysis of adhesions History of appendectomy History of laser iridotomy History of total right knee replacement (TKR) History of gastric bypass History of rotator cuff surgery Personal history of spine surgery primary anterior decompression of cervical spinal cord and fusion posterior decompression lumbar spine and fusion Family History (Updated 03/08/25 @ 13:28 by Elisa Contreras RN) Mother Heart disease Stroke Uterine cancer Father COPD (chronic obstructive pulmonary disease) Social History Smoking/Tobacco Use Status: Former Tobacco Use Quit Date: 05/04/93 Smoking risk assessment performed?: Yes Alcohol Intake: never Drug use: Never Substance use type: does not use Do you feel safe at home: Yes Do you feel safe in your relationship?: Yes
[2025-07-04] MEDS: Benzonatate 100 MG CAP PO (16:18)
[2025-07-04] MEDS: Acetaminophen 500 MG TAB 1000 MG PO (16:18)
[2025-07-04 17:01] LABS: BE (Venous) 2 mmol/L (-2-3); HCO3 (Venous) 27 mmol/L (23-28); O2 Sat (Venous) 70 %; TCO2 (Venous) 23 mmol/L (24-29); pCO2 (Venous) 41 mmHg (41-51); pO2 (Venous) 36 mmHg
[2025-07-04 17:03] LABS: Abs Immature Grans 0.03 10^3/uL (0.0-0.06); HCT 48.2 % (36.0-46.0); HGB 15.9 g/dL (11.2-15.7); Immature Grans % 0.2 %; MCH 28.3 pg (27.0-33.0); MCHC 33.0 % (32.0-36.0); MCV 86 fL (80-95); MPV 9.6 fL (8.0-11.0); Platelet Count 402 10^3/uL (130-400); RBC 5.62 10^6/uL (3.93-5.22); RDW 14.0 % (11.7-14.6); RDW-SD 44.2 fL; WBC 15.44 10^3/uL (4.4-10.8)
[2025-07-04] MEDS: Normal Saline 500 ML IV (17:14)
[2025-07-04 17:28] LABS: Anion Gap 9.2 mmol/L (3-11); BUN 16 mg/dL (9-23); CO2 25.8 mmol/L (20.0-31.0); Calcium 9.9 mg/dL (8.3-10.6); Chloride 106 mmol/L (98-107); Glucose 121 mg/dL (74-106); Potassium 4.2 mmol/L (3.5-5.1); Sodium 141 mmol/L (136-145)
--- NOTE | 2025-07-04 17:30 | DI.CT_ITS ---
Exam(s) CT CHEST/ABD/PEL W EXAM: CT CHEST/ABD/PEL W CLINICAL HISTORY: Pneumonia symptoms, leukocytosis, ileus TECHNIQUE: Imaging Protocol: Axial computed tomography images with coronal and sagittal reformatted images were created and reviewed. Lung Computer Aided Detection (CAD) was utilized. CONTRAST MATERIAL: Intravenous: Omnipaque 350 contrast volume:75 mL Oral: No COMPARISON: CT CT ABDOMEN PELVIS W from 07/26/2024 FINDINGS: CHEST: Tracheobronchial tree: Patent where visualized. No evidence of bronchiectasis. There is mild bronchial wall thickening particularly in the lower lobes. Pulmonary parenchyma: There is an opacity seen in the dependent portion of the left lower lobe which may represent atelectasis or pneumonia. No architectural distortion. Visualized thyroid gland: Unremarkable. Mediastinum and Consuelo: No dominant adenopathy or fluid collection. The esophagus is unremarkable. Pleura: No effusion or pneumothorax. Heart: The heart is not dilated. No coronary artery calcifications are seen. No pericardial effusion. Pulmonary arteries: Due to the timing of the bolus, the pulmonary arteries are suboptimally opacified for evaluation of pulmonary emboli. Aorta: Thoracic aorta non-dilated. Mild atherosclerotic calcification is present. Lymph nodes: There is no significant axillary adenopathy. Soft tissues: Stable 1 cm right breast nodule. There is elevation of the right hemidiaphragm. Bones:Within normal limits for the patient's age. Prior right shoulder surgery. ABDOMEN: Liver: Normal density. There is a subtle 1.8 cm area of decreased attenuation in the right lobe of the liver (series 10, image 143). Portal, Superior Mesenteric, and Splenic Veins: Unremarkable. Gallbladder and Biliary Tract: No radiodense calculus or dilation. Pancreas: Normal density, no abnormal calcifications or inflammatory process. Spleen: Status post splenectomy. There is a splenule seen in the left upper quadrant. Adrenals: No masses seen. Kidneys: Normal size, contour and axis. No radiodense stones or obstructive uropathy. Small simple cyst is seen in the right kidney. No follow-up is recommended. Abdominal Aorta: Abdominal portion non-dilated. Atherosclerotic calcification is present. Bowel: There is no bowel wall thickening. There is redundant sigmoid colon. There are dilated loops of colon present. There is an anastomosis in the small bowel in the left abdomen. No transition point is seen to suggest an obstruction. There is no evidence of an appendicitis. There is a diverticulum seen in the sigmoid colon but no evidence of a diverticulitis. Peritoneal Cavity: No ascites, collection or mesenteric inflammatory response. No free air. Lymph Nodes: Within normal limits. Bones: Within normal limits for the patient's age. Posterior spinal surgery is again seen in the lumbosacral spine. Soft Tissues: There is a small fat containing midline supraumbilical hernia. There is a subcutaneous calcification in the right gluteal region again seen. This may represent an injection granuloma. PELVIS: Bladder: Symmetric distention, no gross wall thickening. Reproductive Organs: Calcified uterine fibroids are again seen. Lymph Nodes: Within normal limits. Bones: Within normal limits. IMPRESSION: 1. There is no acute abdominal or pelvic process. 2. No evidence to suggest bowel obstruction are seen. 3. Left basilar opacity which may represent atelectasis or pneumonia. 4. The preliminary [facility] report was reviewed. RADIATION DOSE DELIVERED: 581.38mGy.cm Total DLP DATA REPOSITORY: All CT scans at this facility are submitted to the National Radiology Data Registry (NRDR) Dose Index Registry (DIR) with the [employer] (ACR). RADIATION OPTIMIZATION: All CT scans at this facility use at least one of these dose optimization techniques: automated exposure control; mA and/or kV adjustment per patient size (includes targeted exams where dose is matched to clinical indication); or iterative reconstruction.
[2025-07-04 17:32] LABS: D-Dimer 479 ng/mlFEU (<500)
[2025-07-04 17:37] LABS: Troponin I < 3 ng/L (<35)
[2025-07-04] MEDS: Normal Saline - Diluent 50 ML VIAL IJ (18:21)
[2025-07-04] MEDS: Omnipaque 350 MG/ML 100 ML BTL IJ (18:21)
[2025-07-04] MEDS: Normal Saline Flush 10 ML SYR IVP (18:22)
[2025-07-04 18:53] LABS: Troponin I < 3 ng/L (<35)
--- NOTE | 2025-07-04 19:28 | DI.[facility]_ITS ---
PROCEDURE INFORMATION: Exam: CT Chest With Contrast; Diagnostic Exam date and time: 07/04/2025 6:22 PM Age: 75 years old Clinical indication: Pneumonia symptoms, leukocytosis, Ileus; Prior surgery: Lumbar laminectomy November 2024, appy, splenectomy gastric bypass TECHNIQUE: Imaging protocol: Diagnostic computed tomography of the chest with contrast. 3D rendering (Not supervised by radiologist): MIP and/or 3D reconstructed images were created by the technologist. Contrast material: OMNIPAQUE 350; Contrast volume: 75 ml; Contrast route: INTRAVENOUS (IV); COMPARISON: CR XR PORTABLE CHEST AP 07/04/2025 4:11 PM FINDINGS: Lungs: No right lung infiltrate. Small patches of infiltrate and/or atelectasis within the posterior left lung base. Pleural spaces: No pleural fluid collection. No pneumothorax. Heart: No pericardial effusion. Lymph nodes: No enlarged lymph nodes. Vasculature: Normal caliber thoracic aorta without dissection or aneurysm. Bones/joints: Spinal degenerative changes. Prior cervical spine surgery. Soft tissues: Stable benign approximate 11 mm right breast nodule. Other findings: Elevated right hemidiaphragm. IMPRESSION: 1. Small patches of infiltrate and/or atelectasis within the posterior left lung base. 2. No pleural fluid collection. PROCEDURE INFORMATION: Exam: CT Abdomen And Pelvis With Contrast Exam date and time: 07/04/2025 6:22 PM Age: 75 years old Clinical indication: Pneumonia symptoms, leukocytosis, Ileus; Prior surgery: Lumbar laminectomy November 2024, appy, splenectomy gastric bypass TECHNIQUE: Imaging protocol: Computed tomography of the abdomen and pelvis with contrast. 3D rendering (Not supervised by radiologist): MIP and/or 3D reconstructed images were created by the technologist. Contrast material: OMNIPAQUE 350; Contrast volume: 75 ml; Contrast route: INTRAVENOUS (IV); COMPARISON: CT ABDOMEN PELVIS W 07/26/2024 10:27 AM FINDINGS: Diaphragm: Elevated right hemidiaphragm. Liver: Normal. No mass. Gallbladder and biliary ducts: Normal. No calcified stones. No ductal dilation. Pancreas: Normal. No ductal dilation. Spleen: Prior splenectomy. Left upper quadrant accessory splenic tissue. Adrenal glands: Normal. No mass. Kidneys and ureters: No hydronephrosis. No calcified renal or ureteral stones. 6 mm posterior right renal cortical stable benign cyst for which no follow-up imaging is recommended. Stomach and bowel: No generalized ileus or bowel obstruction. Prior gastric bypass surgery. Interposition of bowel anterior to the liver. Appendix: Prior appendectomy. Intraperitoneal space: No free air. No significant fluid collection. Vasculature: Normal caliber abdominal aorta without aneurysm or dissection. Lymph nodes: No enlarged lymph nodes. Urinary bladder: Under-distended urinary bladder. Reproductive: Partially-calcified uterine leiomyoma. Bones/joints: Spinal degenerative changes. Prior lower lumbar surgery / laminectomies. Mild thoracolumbar scoliosis. Soft tissues: Small fat-containing ventral and umbilical hernias. IMPRESSION: 1. No acute intra-abdominal or pelvic process. 2. No generalized ileus or bowel obstruction. 3. Partially-calcified uterine leiomyoma. Dictated and Authenticated by: Guicho Newell MD. Orderin Srinivasa Kay MD
[2025-07-04 19:30] LABS: COVID-19 PCR Negative (Negative); RSV PCR Negative (Negative)
[2025-07-04] MEDS: levoFLOXacin 750 MG/150 ML BAG 100 MG IVPB (19:40)
--- NOTE | 2025-07-04 20:26 | W.PM.HP.N ---
Date of service: 07/04/25 Time of Service: 20:27 History of Present Illness History of Present Illness Chief Complaint: hypoxia Narrative: Mrs Alonzo is a pleasant 75-year-old female who recently been diagnosed with PFSH All Active Problems (Updated 07/07/25 @ 00:02 by GAEL TANG) Prurigo nodularis (Acute) Sepsis (Acute) Pneumonia (Acute) Left-sided epistaxis (Acute) Medical History (Updated 07/07/25 @ 00:02 by GAEL TANG) Weakness of both lower limbs Age-related nuclear cataract, bilateral Retinal artery branch occlusion, bilateral Spleen absent Osteopenia Neuropathic pain Disorder of spinal region Spinal stenosis of lumbar region Idiopathic osteoarthritis Pruritic rash Mass of ovary Postoperative malabsorption Cholesterolosis of gallbladder GERD (gastroesophageal reflux disease) Atherosclerosis of artery Left anterior fascicular block (LAFB) Meibomian gland dysfunction (MGD) Primary angle-closure glaucoma Demyelinating disease of central nervous system Anxiety Simple obesity Mixed hyperlipidemia Vitamin D deficiency Splenic marginal zone b-cell lymphoma Appendicitis Iron deficiency anemia Splenomegaly Atypical chest pain Cervical stenosis of spinal canal Radiculopathy of cervical region Chest pain Nausea without vomiting Stenosis of cervical spine with myelopathy Spondylolisthesis at L3-L4 level Solar lentigo Xerosis cutis Lymphocytic colitis Diarrhea Diverticulitis of sigmoid colon Right knee pain Osteoarthritis of knee Lichen planus Rotator cuff tear Hearing loss Vertigo Depression Chronic neck pain HTN (hypertension) Fibromyalgia Shoulder pain Surgical History (Updated 03/08/25 @ 13:26 by Elisa Contreras RN) History of carpal tunnel surgery Status post lumbar laminectomy History of splenectomy History of lysis of adhesions History of appendectomy History of laser iridotomy History of total right knee replacement (TKR) History of gastric bypass History of rotator cuff surgery Personal history of spine surgery primary anterior decompression of cervical spinal cord and fusion posterior decompression lumbar spine and fusion Family History (Updated 03/08/25 @ 13:28 by Elisa Contreras RN) Mother Heart disease Stroke Uterine cancer Father COPD (chronic obstructive pulmonary disease) Social History Smoking/Tobacco Use Status: Former Tobacco Use Quit Date: 05/04/93 Smoking risk assessment performed?: Yes Alcohol Intake: never Drug use: Never Substance use type: does not use Housing: house Do you feel safe at home: Yes Do you feel safe in your relationship?: Yes Meds Allergies and Home Medications Allergies Allergy/AdvReac Type Severity Reaction Status Date / Time nickel Allergy Intermediate Skin Rash Unverified 07/04/25 15:51 fluconazole Allergy Unknown Hives Unverified 07/04/25 15:51 hydrochlorothiazide Allergy Unknown Unknown Unverified 07/04/25 15:51 lisinopril AdvReac Intermediate Other (See Verified 07/04/25 15:51 Comment) Home Medications ?Medication ?Instructions ?Recorded ?Confirmed ?Type cholecalciferol (vitamin D3) 50 50 mcg PO DAILY 03/04/25 07/04/25 History mcg (2,000 unit) tablet clobetasol 0.05 % topical cream 1 applic topical BID 03/04/25 07/04/25 History duloxetine 60 mg capsule,delayed 60 mg PO DAILY 03/04/25 07/04/25 History release losartan 100 mg tablet 100 mg PO DAILY 03/04/25 07/04/25 History magnesium 1 tab PO HS 03/04/25 07/04/25 History mecobalamin (vitamin B12) 1 tab PO DAILY 03/04/25 07/04/25 History omega 3 350 mg-dha 235 mg-epa 90 1 cap PO DAILY 03/04/25 07/04/25 History mg-fish oil 597 mg capsule,delay rel ([place]-3) acetaminophen 325 mg tablet 325 mg PO Q6H PRN 03/08/25 07/04/25 History (Tylenol) aspirin 81 mg tablet 81 mg PO DAILY 03/08/25 07/04/25 History calcium citrate 400 mg PO BID 03/08/25 07/04/25 History hydroxyzine HCl 25 mg tablet 25 mg PO TID PRN 03/08/25 07/04/25 History multivitamin 1 tab PO DAILY 03/08/25 07/04/25 History dupilumab 200 mg/1.14 mL 200 mg subcut ONCE 07/04/25 07/04/25 History subcutaneous pen injector (Dupixent) amoxicillin 875 mg-potassium 1 tab PO BID #10 tabs 07/06/25 Rx clavulanate 125 mg tablet doxycycline hyclate 100 mg capsule 100 mg PO BID #10 caps 07/06/25 Rx Results Labs 07/06/25 06:25 07/06/25 06:25 Labs: Laboratory Results - last 24 hr 07/04/25 07/04/25 07/04/25 16:52 18:20 18:38 WBC 15.44 H RBC 5.62 H Hgb 15.9 H Hct 48.2 H MCV 86 MCH 28.3 MCHC 33.0 RDW 14.0 Plt Count 402 H MPV 9.6 Immature Gran % 0.2 Neutrophils % 72.1 Lymphocytes % 20.1 Monocytes % 6.5 Eosinophils % 0.5 Basophils % 0.6 Nucleated RBC % 0.0 Absolute Neutrophils 11.13 H Absolute Lymphocytes 3.10 Absolute Monocytes 1.00 H Absolute Eosinophils 0.08 Absolute Basophils 0.09 D-Dimer 479 VBG pH 7.42 H VBG pCO2 41 VBG pO2 36 VBG HCO3 27 VBG Total CO2 23 L VBG O2 Saturation 70 VBG Base Excess 2 Sodium 141 Potassium 4.2 Chloride 106 Carbon Dioxide 25.8 Anion Gap 9.2 BUN 16 Creatinine 0.53 L Est GFR (CKD-EPI 2020) 112.07 Glucose 121 H Calcium 9.9 Troponin I < 3 < 3 COVID-19 Source Nasopharynx SARS-CoV-2 (PCR) Negative Influenza Type A (PCR) Negative Influenza Type B (PCR) Negative RSV (PCR) Negative Last Vital Signs Temp 36.9 C 07/04/25 15:45 Pulse 87 07/04/25 19:30 Resp 25 H 07/04/25 19:30 BP 140/46 L 07/04/25 18:17 Pulse Ox 93 07/04/25 19:30 VTE Prohylaxis Risk Level: Moderate/High Risk Contraindications: None Prophylaxis: Patient anticoagulated Time Spent Time spent with Patient: 40-54 minutes Time was spent: preparing to see the patient(eg.review tests), obtaining and/or reviewing separately otained hiistory, ordering medications,tests, procedures, referring, communicating with other health child care center assistant director, indepentently interpreting results, counseling the patient and care coordination
[2025-07-04] MEDS: cefTRIAXone 1,000 MG in Normal Saline 50 ML 100 MG IVPB (21:57)
[2025-07-04] MEDS: Enoxaparin 40 MG/0.4 ML SYR SC (21:57)
--- NOTE | 2025-07-04 22:29 | W.PM.HP.N ---
Date of service: 07/04/25 Time of Service: 22:29 Assessment and Plan Assessment and plan (1) Pneumonia: Status: Acute Assessment and plan: per UTD, pt's with asplenia and fever/pneumonia should be given vanc and rocephin. Will intiaiate (2) HTN (hypertension): Assessment and plan: home meds losatran (3) Mixed hyperlipidemia: Assessment and plan: home meds dvtp lovenox History of Present Illness History of Present Illness Chief Complaint: weakness Narrative: This is a 75-year-old female who presents to the ED today with complaints of weakness, myalgia, coughing fever and chills. While she was in the ED sepsis workup was initiated. Her vital signs were fairly benign temperature 37.1 blood pressure 127/62 pulse of 94 respiratory 20 satting 96% on 2 L nasal cannula. Of note she does not use supplemental oxygen at home. A VBG was drawn showed pH of 7.42 pCO2 41 pO2 36 total CO2 23 base excess 2. CMP was essentially benign. Her white count was elevated at 15,000 and her hemoglobin and hematocrit shows some hemoconcentration at 15.9 and 40.2 platelet count was 402 which is mildly elevated she did have a respiratory viral panel done which was negative. She had an CT of her chest as well as a chest x-ray chest x-ray was essentially negative CT of the abdomen and pelvis fairly benign. 1 main concern though is that she had a recent we have been diagnosed with lymphoma and had a splenectomy approximately 6 months ago. She does not meet SIRS criteria secondary to an elevated white count and an elevated heart rate. Most likely source of infection is pneumonia she is a DNR. Review of Systems All systems reviewed & are unremarkable except as noted in HPI and below PFSH All Active Problems (Updated 07/04/25 @ 22:38 by Ollie Healy MD) Pneumonia (Acute) Left-sided epistaxis (Acute) Medical History (Updated 07/04/25 @ 22:38 by Ollie Healy MD) Weakness of both lower limbs Age-related nuclear cataract, bilateral Retinal artery branch occlusion, bilateral Spleen absent Osteopenia Neuropathic pain Disorder of spinal region Spinal stenosis of lumbar region Idiopathic osteoarthritis Pruritic rash Mass of ovary Postoperative malabsorption Cholesterolosis of gallbladder GERD (gastroesophageal reflux disease) Atherosclerosis of artery Left anterior fascicular block (LAFB) Meibomian gland dysfunction (MGD) Primary angle-closure glaucoma Demyelinating disease of central nervous system Anxiety Simple obesity Mixed hyperlipidemia Vitamin D deficiency Splenic marginal zone b-cell lymphoma Appendicitis Iron deficiency anemia Splenomegaly Atypical chest pain Cervical stenosis of spinal canal Radiculopathy of cervical region Chest pain Nausea without vomiting Stenosis of cervical spine with myelopathy Spondylolisthesis at L3-L4 level Solar lentigo Xerosis cutis Lymphocytic colitis Diarrhea Diverticulitis of sigmoid colon Right knee pain Osteoarthritis of knee Lichen planus Rotator cuff tear Hearing loss Vertigo Depression Chronic neck pain HTN (hypertension) Fibromyalgia Shoulder pain Surgical History (Updated 03/08/25 @ 13:26 by Elisa Contreras RN) History of carpal tunnel surgery Status post lumbar laminectomy History of splenectomy History of lysis of adhesions History of appendectomy History of laser iridotomy History of total right knee replacement (TKR) History of gastric bypass History of rotator cuff surgery Personal history of spine surgery primary anterior decompression of cervical spinal cord and fusion posterior decompression lumbar spine and fusion Family History (Updated 03/08/25 @ 13:28 by Elisa Contreras RN) Mother Heart disease Stroke Uterine cancer Father COPD (chronic obstructive pulmonary disease) Social History Smoking/Tobacco Use Status: Former Tobacco Use Quit Date: 05/04/93 Smoking risk assessment performed?: Yes Alcohol Intake: never Drug use: Never Substance use type: does not use Housing: house Do you feel safe at home: Yes Do you feel safe in your relationship?: Yes Meds Allergies and Home Medications Allergies Allergy/AdvReac Type Severity Reaction Status Date / Time nickel Allergy Intermediate Skin Rash Unverified 07/04/25 15:51 fluconazole Allergy Unknown Hives Unverified 07/04/25 15:51 hydrochlorothiazide Allergy Unknown Unknown Unverified 07/04/25 15:51 lisinopril AdvReac Intermediate Other (See Verified 07/04/25 15:51 Comment) Home Medications ?Medication ?Instructions ?Recorded ?Confirmed ?Type cholecalciferol (vitamin D3) 50 50 mcg PO DAILY 03/04/25 07/04/25 History mcg (2,000 unit) tablet clobetasol 0.05 % topical cream 1 applic topical BID 03/04/25 07/04/25 History duloxetine 60 mg capsule,delayed 60 mg PO DAILY 03/04/25 07/04/25 History release losartan 100 mg tablet 100 mg PO DAILY 03/04/25 07/04/25 History magnesium 1 tab PO HS 03/04/25 07/04/25 History mecobalamin (vitamin B12) 1 tab PO DAILY 03/04/25 07/04/25 History omega 3 350 mg-dha 235 mg-epa 90 1 cap PO DAILY 03/04/25 07/04/25 History mg-fish oil 597 mg capsule,delay rel ([place]-3) acetaminophen 325 mg tablet 325 mg PO Q6H PRN 03/08/25 07/04/25 History (Tylenol) aspirin 81 mg tablet 81 mg PO DAILY 03/08/25 07/04/25 History calcium citrate 400 mg PO BID 03/08/25 07/04/25 History hydroxyzine HCl 25 mg tablet 25 mg PO TID PRN 03/08/25 07/04/25 History multivitamin 1 tab PO DAILY 03/08/25 07/04/25 History dupilumab 200 mg/1.14 mL 200 mg subcut ONCE 07/04/25 07/04/25 History subcutaneous pen injector (Dupixent) Exam Narrative Exam Narrative: HEENT normocephalic atraumatic mucous membranes moist Extraocular motions are intact Neck no lymphadenopathy no JVD no thyromegaly Cardiovascular regular rate and rhythm no murmurs gallops Lungs clear to auscultation bilaterally good air exchange Abdomen soft nontender nondistended bowel sounds active Extremities no sinus clubbing or edema Neurologic cranial nerves II through XII intact as tested nonfocal Psych alert and orient x 3 no current distress Results Labs 07/04/25 16:52 07/04/25 16:52 Labs: Laboratory Results - last 24 hr 07/04/25 07/04/25 07/04/25 16:52 18:20 18:38 WBC 15.44 H RBC 5.62 H Hgb 15.9 H Hct 48.2 H MCV 86 MCH 28.3 MCHC 33.0 RDW 14.0 Plt Count 402 H MPV 9.6 Immature Gran % 0.2 Neutrophils % 72.1 Lymphocytes % 20.1 Monocytes % 6.5 Eosinophils % 0.5 Basophils % 0.6 Nucleated RBC % 0.0 Absolute Neutrophils 11.13 H Absolute Lymphocytes 3.10 Absolute Monocytes 1.00 H Absolute Eosinophils 0.08 Absolute Basophils 0.09 D-Dimer 479 VBG pH 7.42 H VBG pCO2 41 VBG pO2 36 VBG HCO3 27 VBG Total CO2 23 L VBG O2 Saturation 70 VBG Base Excess 2 VBG Lactate Sodium 141 Potassium 4.2 Chloride 106 Carbon Dioxide 25.8 Anion Gap 9.2 BUN 16 Creatinine 0.53 L Est GFR (CKD-EPI 2020) 112.07 Glucose 121 H Calcium 9.9 Troponin I < 3 < 3 COVID-19 Source Nasopharynx SARS-CoV-2 (PCR) Negative Influenza Type A (PCR) Negative Influenza Type B (PCR) Negative RSV (PCR) Negative 07/04/25 20:40 WBC RBC Hgb Hct MCV MCH MCHC RDW Plt Count MPV Immature Gran % Neutrophils % Lymphocytes % Monocytes % Eosinophils % Basophils % Nucleated RBC % Absolute Neutrophils Absolute Lymphocytes Absolute Monocytes Absolute Eosinophils Absolute Basophils D-Dimer VBG pH VBG pCO2 VBG pO2 VBG HCO3 VBG Total CO2 VBG O2 Saturation VBG Base Excess VBG Lactate 0.8 Sodium Potassium Chloride Carbon Dioxide Anion Gap BUN Creatinine Est GFR (CKD-EPI 2020) Glucose Calcium Troponin I COVID-19 Source SARS-CoV-2 (PCR) Influenza Type A (PCR) Influenza Type B (PCR) RSV (PCR) Last Vital Signs Temp 37.1 C 07/04/25 21:36 Pulse 94 H 07/04/25 21:36 Resp 20 07/04/25 21:36 BP 127/62 07/04/25 21:36 Pulse Ox 96 07/04/25 21:36 VTE Prohylaxis Risk Level: Moderate/High Risk Contraindications: None Prophylaxis: Patient anticoagulated Time Spent Time spent with Patient: 55-74 minutes Time was spent: preparing to see the patient(eg.review tests), obtaining and/or reviewing separately otained hiistory, ordering medications,tests, procedures, referring, communicating with other health child caregiver, indepentently interpreting results, counseling the patient and care coordination
[2025-07-05] MEDS: cefTRIAXone 1,000 MG in Normal Saline 50 ML 100 MG IVPB (01:51)
[2025-07-05] MEDS: Acetaminophen 325 MG TAB PO (01:55)
[2025-07-05] MEDS: VANCOMYCIN/WATER (PEG) 2 GM/400 ML BAG IV (02:29)
[2025-07-05 04:45] VITALS: O2SAT 95
[2025-07-05] MEDS: Lactated Ringers 1,000 ML 125 ML IV (06:11)
[2025-07-05 06:42] LABS: Abs Immature Grans 0.04 10^3/uL (0.0-0.06); HCT 43.6 % (36.0-46.0); HGB 14.6 g/dL (11.2-15.7); Immature Grans % 0.3 %; MCH 28.8 pg (27.0-33.0); MCHC 33.5 % (32.0-36.0); MCV 86 fL (80-95); MPV 9.9 fL (8.0-11.0); Platelet Count 330 10^3/uL (130-400); RBC 5.07 10^6/uL (3.93-5.22); RDW 14.2 % (11.7-14.6); RDW-SD 44.7 fL; WBC 13.19 10^3/uL (4.4-10.8)
[2025-07-05 07:13] LABS: ALT 33 U/L (10-49); AST 27 U/L (<34); Albumin 4.1 g/dL (3.2-5.0); Alkaline Phosphatase 133 U/L (46-116); Anion Gap 9.9 mmol/L (3-11); BUN 11 mg/dL (9-23); Bilirubin, Total 0.80 mg/dL (0.2-1.2); CO2 24.1 mmol/L (20.0-31.0); Calcium 9.4 mg/dL (8.3-10.6); Chloride 107 mmol/L (98-107); Glucose 99 mg/dL (74-106); Potassium 3.8 mmol/L (3.5-5.1); Sodium 141 mmol/L (136-145); Total Protein 6.5 g/dL (5.7-8.2)
[2025-07-05 07:27] VITALS: BP 132/62; PULSE 78; RESP 17; TEMP 36.6; O2SAT 92
[2025-07-05] MEDS: Losartan 50 MG TAB 100 MG PO (08:10)
[2025-07-05] MEDS: Omega-3 Fatty Acids 1000 MG CAP PO (08:10)
[2025-07-05] MEDS: DULoxetine 30 MG CAP 60 MG PO (08:10)
[2025-07-05] MEDS: Calcium Citrate 950 MG TAB 1900 MG PO ×2 (08:10→20:34)
[2025-07-05] MEDS: Cholecalciferol (Vitamin D3) 1,000 UNIT TAB 2000 UNITS PO (08:11)
[2025-07-05] MEDS: Multivitamin TAB 1 TAB PO (08:11)
[2025-07-05] MEDS: Aspirin 81 MG CHEW CH (08:11)
--- NOTE | 2025-07-05 09:25 | PDOC.CMIN ---
Date of service: 07/05/25 Time of Service: 09:25 Care Management Initial Assmt Initial Assessment Reason for Hospitalization: pneumonia Functional Status/Living Situation Patient Presentation: Beata was sitting up in bed when CM met with her. She easily engaged with CM and was pleasant in interaction. Beata was admitted with pneumonia. Initially she required nasal oxygen but by this morning was saturating well on room air. She shared that she is feeling better and hopes to be able to go home over the weekend. Beata lives in a single family home in [place] with her Bernard. She has a son who lives in [place] and a daughter in [facility] [place] [facility]. She has a granddaughter in [facility] as well and a grandson in [place]. Beata is also blessed with 4 great grandchildren. When asked if she has ever worked outside of the home, she answered Mag[employer] done it all. 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 She just retired last year at the age of 74. Beata is independent at baseline and does not receive any community services. She does use a cane when walking outside if on uneven ground. Town of Residence: [place], [place] Resides with: Spouse ( Bernard) Significant Other/Family: Local Natural Supports: family Employment Status: Retired Instrumental Activities of Daily Living (ADLs): Independent Medications Medication Management: No Issues/Barriers identified Physical Functioning/Mobility Assistive Device: cane Advance Directives Advance Directives: Do you have an Advance Directive: N 11/10/15, 15:02 AD On File at [facility]: N 11/10/15, 15:02 Date Asked 07/04/25 07/04/25, 15:47 AD Date Reviewed COLST On File at [facility] COLST Date Scanned Code Status Resuscitation Status DNR/DNI Portal Pt does not currently have a portal and education provided: Yes Insurance Coverage/Financial Issues Insurance: kelley [employer] Care Team Visit Care Team Role Provider Type Tanisha Lang APRN MD [facility] STAFF PHYSICIAN Jennifer Fisher Primary Care Provider NON-[facility] STAFF PHYSICIAN Mayda King Other Providers OTHER EVI Day Emergency Provider PHYSICIANS PRACTICE ADMINISTRATOR Ollie Healy MD Admit Provider MD [facility] STAFF PHYSICIAN Attending Provider Discharge Potential Discharge Needs: PCP F/U Appt Anticipated Barriers to Discharge: None Identified Patient/Family Education Needs: Review discharge instructions, discuss Ask Me Three Transportation: Private vehicle Plan: Anticipate Beata will be discharged home with no new services when medically cleared. She will follow up with her PCP and plan of care and transport with family. CM will follow and continue to assess for discharge needs. Social Determinants of Health Screening Social Determinants of health last assessed in clinic: 07/04/25 Will the Patient Participate in the Screening?: Declined to provide Do you worry about having a steady place to live?: no Problems where you live: no known problems In the past 12 months, have you had to go without electric, gas, oil or water in your home?: no Has lack of transportation kept you from medical appointments or from doing things needed for daily living?: no Has anyone in your life made you feel unsafe or unsupported?: no How hard is it for you to pay for the very basics like food, housing, medical care, and heating? Would you say it is:: Not hard at all Do you want help finding or keeping work or a job?: I do not need or want help If for any reason you need help with day-to-day activities such as bathing, preparing meals, shopping, managing finances, etc., do you get the help you need?: I don?t need any help How often do you feel lonely or isolated from those around you?: Never Do you speak a language other than Greenlandic at home?: No Does the patient want assistance with any of the above?: No PFSH All Active Problems (Updated 07/05/25 @ 10:23 by Tanisha Lang APRN) Sepsis (Acute) Pneumonia (Acute) Left-sided epistaxis (Acute) Medical History (Updated 07/05/25 @ 10:23 by Tanisha Lang APRN) Weakness of both lower limbs Age-related nuclear cataract, bilateral Retinal artery branch occlusion, bilateral Spleen absent Osteopenia Neuropathic pain Disorder of spinal region Spinal stenosis of lumbar region Idiopathic osteoarthritis Pruritic rash Mass of ovary Postoperative malabsorption Cholesterolosis of gallbladder GERD (gastroesophageal reflux disease) Atherosclerosis of artery Left anterior fascicular block (LAFB) Meibomian gland dysfunction (MGD) Primary angle-closure glaucoma Demyelinating disease of central nervous system Anxiety Simple obesity Mixed hyperlipidemia Vitamin D deficiency Splenic marginal zone b-cell lymphoma Appendicitis Iron deficiency anemia Splenomegaly Atypical chest pain Cervical stenosis of spinal canal Radiculopathy of cervical region Chest pain Nausea without vomiting Stenosis of cervical spine with myelopathy Spondylolisthesis at L3-L4 level Solar lentigo Xerosis cutis Lymphocytic colitis Diarrhea Diverticulitis of sigmoid colon Right knee pain Osteoarthritis of knee Lichen planus Rotator cuff tear Hearing loss Vertigo Depression Chronic neck pain HTN (hypertension) Fibromyalgia Shoulder pain Surgical History (Updated 03/08/25 @ 13:26 by Elisa Contreras RN) History of carpal tunnel surgery Status post lumbar laminectomy History of splenectomy History of lysis of adhesions History of appendectomy History of laser iridotomy History of total right knee replacement (TKR) History of gastric bypass History of rotator cuff surgery Personal history of spine surgery primary anterior decompression of cervical spinal cord and fusion posterior decompression lumbar spine and fusion Family History (Updated 03/08/25 @ 13:28 by Elisa Contreras RN) Mother Heart disease Stroke Uterine cancer Father COPD (chronic obstructive pulmonary disease) Social History Smoking/Tobacco Use Status: Former Tobacco Use Quit Date: 05/04/93 Smoking risk assessment performed?: Yes Alcohol Intake: never Drug use: Never Substance use type: does not use Housing: house Do you feel safe at home: Yes Do you feel safe in your relationship?: Yes
--- NOTE | 2025-07-05 10:20 | W.PM.PROGNOT ---
Date of Service Date of service: 07/05/25 Time of Service: 10:20 Assessment and Plan Assessment and plan (1) Sepsis: Status: Acute Assessment and plan: WBC 15 on admission with tachycardia HR 102 and tachypnea RR 26 and source respiratory as per point 2 Blood Cx pending (2) Pneumonia: Status: Acute Assessment and plan: per UTD, pt's with asplenia and fever/pneumonia should be given vancomycin and cetriaxone rocephin- Consider total duration 5?7 days for hospitalized patients with nonsevere disease including coverage at discharge wtih clinical improvement Ongoing Vancomycin and Rocephin MRSA PCR- norrow down antibiotic regimen as per results sputum Gram stain Mucinex and Benzonatate Patient on dupixent at home- consider eosinophilic pneumonia if not improving clinically (3) HTN (hypertension): Assessment and plan: On home Losartan (4) Prurigo nodularis: Status: Acute Assessment and plan: As per [employer] - indicated to continue home Dupixent regimen (5) Mixed hyperlipidemia: Assessment and plan: Home regimen of omega 3 fatty acids (6) Fibromyalgia: Assessment and plan: on home medicine regimen (7) On deep vein thrombosis (DVT) prophylaxis: Status: Acute Assessment and plan: Ongoing Lovenox for DVt prophylaxis Subjective Subjective Patient reports: no new complaints, feels better, tolerating liquids well, voiding w/o difficulty, flatus, no bowel movement, nausea and shortness of breath; denies vomiting or fever Exam Narrative Exam Narrative: Constitutional The patient in bed increased WOB with speech The patient is well groomed, short of breath and tachypneic while speaking Neuro:alert and oriented X 4 . No neurological focal deficit Resp: labored breathing with speech,RLL coarse diminished airflow , exp wheezing L>R Cardio: regular rhythm, S1, S2, no murmur, capillary refill .>3 sec., GI: Abdomen is not distended, soft and non tender, bowel sounds are present : Negative Costo-vertebral angle tenderness Integumentary: No skin lesions or rash Extremities:improved weakness not baseline yet Psych: RASS 1, anxiuos mood and affect. Objective Last Vital Signs Temp 36.6 C 07/05/25 07:27 Pulse 78 07/05/25 07:27 Resp 17 07/05/25 07:27 BP 132/62 07/05/25 07:27 Pulse Ox 92 07/05/25 07:27 Laboratory Results - last 24 hr 07/04/25 07/04/25 07/04/25 16:52 18:20 18:38 WBC 15.44 H RBC 5.62 H Hgb 15.9 H Hct 48.2 H MCV 86 MCH 28.3 MCHC 33.0 RDW 14.0 Plt Count 402 H MPV 9.6 Immature Gran % 0.2 Neutrophils % 72.1 Lymphocytes % 20.1 Monocytes % 6.5 Eosinophils % 0.5 Basophils % 0.6 Nucleated RBC % 0.0 Absolute Neutrophils 11.13 H Absolute Lymphocytes 3.10 Absolute Monocytes 1.00 H Absolute Eosinophils 0.08 Absolute Basophils 0.09 D-Dimer 479 VBG pH 7.42 H VBG pCO2 41 VBG pO2 36 VBG HCO3 27 VBG Total CO2 23 L VBG O2 Saturation 70 VBG Base Excess 2 VBG Lactate Sodium 141 Potassium 4.2 Chloride 106 Carbon Dioxide 25.8 Anion Gap 9.2 BUN 16 Creatinine 0.53 L Est GFR (CKD-EPI 2020) 112.07 Glucose 121 H Calcium 9.9 Total Bilirubin AST ALT Alkaline Phosphatase Troponin I < 3 < 3 Total Protein Albumin COVID-19 Source Nasopharynx SARS-CoV-2 (PCR) Negative Influenza Type A (PCR) Negative Influenza Type B (PCR) Negative RSV (PCR) Negative 07/04/25 07/05/25 20:40 06:20 WBC 13.19 H RBC 5.07 Hgb 14.6 Hct 43.6 MCV 86 MCH 28.8 MCHC 33.5 RDW 14.2 Plt Count 330 MPV 9.9 Immature Gran % 0.3 Neutrophils % 64.9 Lymphocytes % 25.3 Monocytes % 8.2 Eosinophils % 0.8 Basophils % 0.5 Nucleated RBC % 0.0 Absolute Neutrophils 8.56 H Absolute Lymphocytes 3.34 Absolute Monocytes 1.08 H Absolute Eosinophils 0.11 Absolute Basophils 0.07 D-Dimer VBG pH VBG pCO2 VBG pO2 VBG HCO3 VBG Total CO2 VBG O2 Saturation VBG Base Excess VBG Lactate 0.8 Sodium 141 Potassium 3.8 Chloride 107 Carbon Dioxide 24.1 Anion Gap 9.9 BUN 11 Creatinine 0.46 L Est GFR (CKD-EPI 2020) 131.97 Glucose 99 Calcium 9.4 Total Bilirubin 0.80 AST 27 ALT 33 Alkaline Phosphatase 133 H Troponin I Total Protein 6.5 Albumin 4.1 COVID-19 Source SARS-CoV-2 (PCR) Influenza Type A (PCR) Influenza Type B (PCR) RSV (PCR) VTE Prohylaxis Risk Level: Moderate/High Risk Contraindications: None Prophylaxis: Patient anticoagulated Time Spent with Patient Time Spent with Patient: >50 minutes Time was spent: preparing to see the patient(eg.review tests), obtaining and/or reviewing separately otained hiistory, ordering medications,tests, procedures, referring, communicating with other health point of care technician, indepentently interpreting results, counseling the patient, care coordination and other
[2025-07-05 13:39] LABS: Vancomycin, Random 10.4 ug/mL
[2025-07-05] MEDS: DUPILUMAB 1 EACH SC (14:33)
[2025-07-05] MEDS: Acetaminophen 500 MG TAB 1000 MG PO (14:41)
[2025-07-05] MEDS: VANCOMYCIN/WATER (PEG) 1.25 GM/250 ML BAG IV (14:43)
[2025-07-05 17:04] LABS: MRSA PCR Negative (Negative)
[2025-07-05 19:53] VITALS: BP 142/72; PULSE 84; RESP 16; TEMP 37; O2SAT 92
[2025-07-05] MEDS: cefTRIAXone 2 GM/50 ML BAG IVPB (20:26)
[2025-07-05] MEDS: Enoxaparin 40 MG/0.4 ML SYR SC (20:35)
[2025-07-05] MEDS: guaiFENesin 600 MG TABCR PO (20:35)
[2025-07-06] MEDS: VANCOMYCIN/WATER (PEG) 1.25 GM/250 ML BAG IV (01:40)
[2025-07-06 06:41] LABS: Abs Immature Grans 0.03 10^3/uL (0.0-0.06); HCT 43.4 % (36.0-46.0); HGB 14.4 g/dL (11.2-15.7); Immature Grans % 0.3 %; MCH 28.3 pg (27.0-33.0); MCHC 33.2 % (32.0-36.0); MCV 85 fL (80-95); MPV 9.7 fL (8.0-11.0); Platelet Count 366 10^3/uL (130-400); RBC 5.08 10^6/uL (3.93-5.22); RDW 14.3 % (11.7-14.6); RDW-SD 44.9 fL; WBC 11.65 10^3/uL (4.4-10.8)
[2025-07-06 06:59] LABS: Magnesium 1.7 mg/dL (1.6-2.6)
[2025-07-06 07:01] LABS: Anion Gap 12.1 mmol/L (3-11); BUN 11 mg/dL (9-23); CO2 20.9 mmol/L (20.0-31.0); Calcium 9.7 mg/dL (8.3-10.6); Chloride 109 mmol/L (98-107); Glucose 101 mg/dL (74-106); Potassium 3.9 mmol/L (3.5-5.1); Sodium 142 mmol/L (136-145)
[2025-07-06] MEDS: Losartan 50 MG TAB 100 MG PO (07:52)
[2025-07-06] MEDS: DULoxetine 30 MG CAP 60 MG PO (07:52)
[2025-07-06] MEDS: Calcium Citrate 950 MG TAB 1900 MG PO (07:52)
--- NOTE | 2025-07-06 07:52 | W.PC.ACHO ---
Registration Status: ADM IN Primary Language: Preferred Language: Lao ED Information & Data Chief Complaint RespSymp 07/04/25 17:42 Chief Complaint RespSymp 07/04/25 15:50 Triage Note been sick 1 wek, cold like s 07/04/25 15:42 /s, yesterday and today have been worse. Medical / Surgical History (Last Updated 03/08/25 @ 13:26 by Elisa Contreras, HUNTER) Weakness of both lower limbs Age-related nuclear cataract, bilateral Retinal artery branch occlusion, bilateral Spleen absent Osteopenia Neuropathic pain Disorder of spinal region Spinal stenosis of lumbar region Idiopathic osteoarthritis Pruritic rash Mass of ovary Postoperative malabsorption Cholesterolosis of gallbladder GERD (gastroesophageal reflux disease) Atherosclerosis of artery Left anterior fascicular block (LAFB) Meibomian gland dysfunction (MGD) Primary angle-closure glaucoma Demyelinating disease of central nervous system Anxiety Simple obesity Mixed hyperlipidemia Vitamin D deficiency Splenic marginal zone b-cell lymphoma Appendicitis Iron deficiency anemia Splenomegaly Atypical chest pain Cervical stenosis of spinal canal Radiculopathy of cervical region Chest pain Nausea without vomiting Stenosis of cervical spine with myelopathy Spondylolisthesis at L3-L4 level Solar lentigo Xerosis cutis Lymphocytic colitis Diarrhea Diverticulitis of sigmoid colon Right knee pain Osteoarthritis of knee Lichen planus Rotator cuff tear Hearing loss Vertigo Depression Chronic neck pain HTN (hypertension) Fibromyalgia Shoulder pain (Last Updated 03/08/25 @ 13:26 by Elisa Contreras, HUNTER) History of carpal tunnel surgery Status post lumbar laminectomy History of splenectomy History of lysis of adhesions History of appendectomy History of laser iridotomy History of total right knee replacement (TKR) History of gastric bypass History of rotator cuff surgery Personal history of spine surgery Most Recent Vital Signs Temperature 37 C 07/05/25 19:53 Temperature Source Temporal Artery Scan 07/05/25 19:53 Pulse 84 07/05/25 19:53 Pulse Rhythm Regular 07/04/25 21:36 Pulse 87 07/04/25 21:01 Respiratory Rate 16 07/05/25 19:53 Respiratory Effort Short of Breath 07/04/25 21:36 Respiratory Depth Shallow 07/04/25 21:36 Respiratory Pattern Normal 07/04/25 21:36 Blood Pressure 142/72 H 07/05/25 19:53 Blood Pressure Mean 95 07/05/25 19:53 Pulse Oximetry 92 07/05/25 19:53 Oxygen Delivery Method Room Air 07/05/25 19:53 Oxygen Flow Rate 0 07/05/25 19:53 Pain Level 0 07/05/25 19:53 Comment Vitals taken at admission. 07/04/25 22:51 Allergies nickel Allergy (Intermediate, Unverified 07/04/25 15:51) Skin Rash fluconazole Allergy (Unknown, Unverified 07/04/25 15:51) Hives hydrochlorothiazide Allergy (Unknown, Unverified 07/04/25 15:51) Unknown lisinopril Adverse Reaction (Intermediate, Verified 07/04/25 15:51) Other (See Comment) cough Active Medications Generic Name Dose Route Start Last Admin Trade Name Freq PRN Reason Stop Dose Admin Acetaminophen 1,000 mg 07/05/25 13:22 07/05/25 14:41 Acetaminophen 500 Mg Tab PO 1,000 mg Q8H PRN PRN Administration Aspirin 81 mg 07/05/25 08:30 07/05/25 08:11 Aspirin 81 Mg Chew CH 81 mg DAILY JERICA Administration Calcium Citrate 1,900 mg 07/05/25 08:30 07/05/25 20:34 Calcium Citrate 950 Mg Tab PO 1,900 mg BID JERICA Administration Cholecalciferol 2,000 units 07/05/25 08:30 07/05/25 08:11 Cholecalciferol (Vitamin D3) 1,000 Unit Tab PO 2,000 units DAILY JERICA Administration Duloxetine HCl 60 mg 07/05/25 08:30 07/05/25 08:10 Duloxetine 30 Mg Cap PO 60 mg DAILY JERICA Administration Enoxaparin Sodium 40 mg 07/04/25 22:00 07/05/25 20:35 Enoxaparin 40 Mg/0.4 Ml Syr SC 40 mg Q24H JERICA Administration Fish Oil 1,000 mg 07/05/25 08:30 07/05/25 08:10 [place]-3 Fatty Acids 1000 Mg Cap PO 1,000 mg DAILY JERICA Administration Guaifenesin 600 mg 07/05/25 20:00 07/05/25 20:35 Guaifenesin 600 Mg Tabcr PO 600 mg BID JERICA Administration Ceftriaxone Sodium/Dextrose 2 gm in 50 mls @ 100 mls/hr 07/05/25 20:00 07/05/25 20:26 Rocephin IVPB 100 mls/hr Q24H JERICA Administration Vancomycin/PEG/NADA/Lysine/Water 1.25 gm in 250 mls @ 166.667 mls/hr 07/05/25 14:00 07/06/25 01:40 Vancocin Injection IV 166.667 mls/hr Q12H JERICA Administration Losartan Potassium 100 mg 07/05/25 08:30 07/05/25 08:10 Losartan 50 Mg Tab PO 100 mg DAILY JERICA Administration Multivitamins 1 tab 07/05/25 08:30 07/05/25 08:11 Multivitamin Tab PO 1 tab DAILY JERICA Administration Sodium Chloride 0 ml 07/04/25 18:20 07/04/25 18:22 Normal Saline Flush 10 Ml Syr IVP 10 ml PRN PRN Administration IV IV Catheter Type [Left Upper Peripheral IV arm] IV Catheter Gauge [Left Upper 18 arm] Diagnostics 07/06/25 07/05/25 07/05/25 Range/Units 06:25 12:35 10:54 WBC 11.65 H (4.4-10.8) 10^3/uL RBC 5.08 (3.93-5.22) 10^6/uL Hgb 14.4 (11.2-15.7) g/dL Hct 43.4 (36.0-46.0) % MCV 85 (80-95) fL MCH 28.3 (27.0-33.0) pg MCHC 33.2 (32.0-36.0) % RDW 14.3 (11.7-14.6) % Plt Count 366 (130-400) 10^3/uL MPV 9.7 (8.0-11.0) fL Immature Gran % 0.3 % Neutrophils % 56.3 % Lymphocytes % 31.1 % Monocytes % 8.7 % Eosinophils % 2.8 % Basophils % 0.8 % Nucleated RBC % 0.0 (0.0-0.3) % Absolute Neutrophils 6.56 (1.2-6.7) 10^3/uL Absolute Lymphocytes 3.62 H (1.2-3.4) 10^3/uL Absolute Monocytes 1.01 H (0.1-0.8) 10^3/uL Absolute Eosinophils 0.33 (0.0-0.7) 10^3/uL Absolute Basophils 0.09 (0.0-0.2) 10^3/uL Sodium 142 (136-145) mmol/L Potassium 3.9 (3.5-5.1) mmol/L Chloride 109 H (98-107) mmol/L Carbon Dioxide 20.9 (20.0-31.0) mmol/L Anion Gap 12.1 H (3-11) mmol/L BUN 11 (9-23) mg/dL Creatinine 0.47 L (0.55-1.02) mg/dL Est GFR (CKD-EPI 2020) 128.74 (mL/min/1.73m2) Glucose 101 (74-106) mg/dL Calcium 9.7 (8.3-10.6) mg/dL Magnesium 1.7 (1.6-2.6) mg/dL Random Vancomycin 10.4 ug/mL MRSA (TEM-PCR) Negative (Negative) 07/04/25 22:30 Blood Culture - Preliminary Blood NO GROWTH 24 HOURS 07/04/25 22:15 Blood Culture - Preliminary Blood NO GROWTH 24 HOURS 07/05/25 11:30 Sputum Culture - Pending Sputum Gram Stain - Final Intake and Output - 24 Hour Total 07/04/25 15:40 thru 07/06/25 06:12 Intake Total 3480 Balance 3480 Weight 81.1 kg Intake: IV 3000 Oral 480 Other: Urine Color Yellow Urine Appearance Clear Urine Odor Normal Comment Pt voids an immeasurable amount ind. into the toilet. Falls Risk Assessment History of Falls No History 07/04/25 21:36 Contributing Factors No Factors 07/04/25 21:36 Ambulatory Aids Independent 07/04/25 21:36 Tubes/Lines None 07/04/25 21:36 Gait Evaluation No gait disturbance 07/04/25 21:36 Cognition No cognitive impairment 07/04/25 21:36 Fall Total Score 0 07/04/25 21:36 Level of Risk Standard/Low Risk 07/04/25 21:36 Problems (Last Updated 03/08/25 @ 13:26 by Elisa Contreras RN) On deep vein thrombosis (DVT) prophylaxis (Acute) Prurigo nodularis (Acute) Sepsis (Acute) Pneumonia (Acute) Attestation Statement: By documenting the first initial, last name, and credentials of the reporting nurse below, both parties acknowledge that all relevant information regarding the patient handoff has been communicated, and that all questions have been addressed to ensure continuity and safety of care. Additional Patient Information/Comments: Pt was brought to floor via stretcher and settled into room. Pt was oriented to room and call dan was placed within reach. Report Received From:
[2025-07-06] MEDS: Multivitamin TAB 1 TAB PO (07:53)
[2025-07-06] MEDS: Aspirin 81 MG CHEW CH (07:53)
[2025-07-06] MEDS: guaiFENesin 600 MG TABCR PO (07:53)
[2025-07-06] MEDS: Cholecalciferol (Vitamin D3) 1,000 UNIT TAB 2000 UNITS PO (07:54)
[2025-07-06] MEDS: Omega-3 Fatty Acids 1000 MG CAP PO (07:54)
[2025-07-06 08:28] VITALS: BP 150/65; PULSE 92; RESP 16; TEMP 36.7; O2SAT 99
--- NOTE | 2025-07-06 10:13 | PT.INIE ---
PT Notes Visit Reasons: Hypoxia Inpatient Physical Therapy Evaluation Date: 07/06/25 Referring Doctor: Dr. Healy Precautions: N/A Patient Profile/Admitting Diagnosis: Hypoxia Social History/Home Situation: Pt lives in [place] with her . She is fully independent at baseline without any need for any form of AD. She does still drive. She does have stairs to get into her house. She has stairs to get to the second floor but does not need to manage them. Subjective: Pt states she feels good today and hopes to go home. Objective: General Observation: Well appearing, sitting up and smiling Mental Status: A+Ox4 Pain: Denies pain Vital Signs: 94% spo2 on RA following session ROM: WFL throughout bilat UEs and LEs - describes not full ROM of R knee due to TKA 7 years ago Strength: Able to perform SLR, heel slide, active ankle motion bilaterally with ease Sensation: Hyposensitivity throughout bilat LEs distal to knee Bed Mobility/Transfers: supine to sit - independent sit to supine - independent sit to stand - independent stand to sit - independent Gait: Ambulates 250 ft w/SBA and without any form of AD Stairs: Ascends/descends 4 steps with a single UE support and with SBA Balance: Able to perform static marching bilaterally without any UE support Special Tests: Mobility Limitations Standardized Measure [facility] AM-PAC 6 clicks Basic Mobility Inpatient Short Form: Raw Score: 23 CMS Score: 11.2% Informed Consent/Education: Patient instructed in purpose of PT consult and plan of care. Assessment: Patient is currently functioning at her baseline and can return home safely when medically cleared. She was able to go up and down a set of stairs today with ease. Her balance is good in both standing and seated positions. She did not have any issues with bed mobility. She has family support at home if needed. No further PT services needed. Patient is assessed as a [x] Low 17877 complexity based on the following: History: Low Examination: Low Presentation: Low Decision Making: Low Plan of Care/Treatment Plan: 1-2x/day, 7 days/week x 1 week. Plan of care has been reviewed with the LOCKSTITCH SLEEVE SETTER providing the service under Physical Therapy direction. Initiate Physical Therapy intervention for strengthening, bed mobility, transfers, gait, stairs, balance training, use of assistive device. DISCHARGE RECOMMENDATIONS: Home without any services when medically cleared [x] Home with no services [] [] Home with services [specify] [] Home with outpatient PT [] [] SNF for continued rehabilitation [] [] Labor Gang Supervisor Care [] [] SNF versus LTC based on ability to participate and progress [] TREATMENT CODE/TIME: Kyle Borjas ([id number]) x1 - 30 min
--- NOTE | 2025-07-06 10:25 | W.PM.DS.N ---
Date of service: 07/06/25 Time of Service: 10: DS: Diagnosis Discharge Diagnosis (1) Sepsis: Status: Acute (2) Pneumonia: Status: Acute (3) Prurigo nodularis: Status: Acute Discharge Plan Disposition Patient Disposition: Home Anticipated Discharge Date/Time: 07/06/25 10:26 Condition: Improving Discharge Details Reason For Visit: Hypoxia Admit Date/Time: 07/04/25 20:31 Admit Provider: Ollie Healy Attending Provider: Ollie Healy Primary Care Provider: Jennifer Fisher Hospital Course Hospital Course: This is a 75 year old female no significant past medical history presented to the ED for c/o cough and shortness of breath, found to have acute hypoxic respiratory failure due to pneumonia. she was placed on ceftriaxone and vancomycin and admitted to the medical surgical unit as she did have oxygen requirements. She remained hemodynamically stable and was weaned off oxygen. She was eating and drinking and ambulating independently in her room. She felt improved and ready for discharge to home. She is being discharged to home with no new services. She is being down stepped to Augmentin and doxycycline for 5 more days to complete a 7-day course. She should see her PCP or return sooner to the emergency department for new or worsening symptoms Discharge discussed with Dr. Roberts Home Meds and New Rx's Prescriptions: New amoxicillin-pot clavulanate 875-125 mg tablet 1 tab PO BID Qty: 10 0RF doxycycline hyclate 100 mg capsule 100 mg PO BID Qty: 10 0RF Continued multivitamin Tablet 1 tab PO DAILY acetaminophen [Tylenol] 325 mg tablet 325 mg PO Q6H PRN hydroxyzine HCl 25 mg tablet 25 mg PO TID PRN aspirin 81 mg tablet 81 mg PO DAILY calcium citrate 200 mg (950 mg) tablet 400 mg PO BID losartan 100 mg tablet 100 mg PO DAILY duloxetine 60 mg capsule,delayed release(DR/EC) 60 mg PO DAILY cholecalciferol (vitamin D3) 50 mcg (2,000 unit) tablet 50 mcg PO DAILY mecobalamin (vitamin B12) [B12 Active] 1 tab PO DAILY clobetasol 0.05 % cream 1 applic TOPICAL BID Patient Comments: APPLY A THIN LAYER TO THE AFFECTED AREA(S) BY TOPICAL ROUTE 2 TIMES PER DAY NEEDED, do not use for longer than 2 weeks in a row. magnesium 1 tab PO HS [place]-3 350 mg-235 mg- 90 mg-597 mg capsule,delayed release(DR/EC) 1 cap PO DAILY Dupixent Pen 200 mg/1.14 mL pen injector 200 mg subcut ONCE Discharge Instructions Instructions: Pneumonia in adults Additional Instructions: complete antibiotics as prescribed even if you feel better push fluids to stay well hydrated, drinking 6-8 glasses daily resume the rest of your medications as previously directed Stand Alone Forms: Portal Information, Nursing Discharge Form Referrals: Jennifer Fisher [Primary Care Provider, Medicine] Referral Note: Please call and schedule a follow up with your primary care office. Activity:: Activity as Tolerated Equipment/Supplies:: No Equipment Needed Diet:: As Tolerated Discharge Orders Discharge Orders: Discharge Order (Routine); Ordered 07/06/25 Ordered By: Brissa Brown Discharge Data Discharge Date/Time-TO BE ENTERED AT DEPARTURE: 07/06/25 11:43 DS: Summary Time Spent with Patient providing and/or coordinating discharge services: Less than 30 minutes Status at Discharge Functional status at discharge: independent ambulation Overall status at discharge: patient is progressing back to baseline Mental Status: mental status grossly normal Speech and Movement: speech and movement normal Mood: congruent mood Affect: normal affect Exam Narrative Exam Narrative: Well-appearing female of stated age no acute distress head is atraumatic eyes nonicteric noninjected oral mucosa is slightly dry neck is supple full range of motion no JVD cardiovascular regular rate and rhythm respirations even and unlabored no wheezing coarse breath sounds in the bases bilaterally white moist cough abdomen is soft nontender moves all extremities no peripheral edema skin no rashes or lesions neurologic she is awake alert oriented no focal deficits psychiatric appropriate mood and affect gait is steady and unassisted Psych Mental Status: mental status grossly normal Speech and Movement: speech and movement normal Mood: congruent mood Affect: normal affect DS: Data Vitals/I&O Vitals and I&O: Vital Signs Temperature 36.7 C 07/06/25 08:28 Temperature Source Temporal Artery Scan 07/06/25 08:28 Pulse 92 H 07/06/25 08:28 Pulse Rhythm Regular 07/04/25 21:36 Pulse 87 07/04/25 21:01 Respiratory Rate 16 07/06/25 08:28 Respiratory Effort Short of Breath 07/04/25 21:36 Respiratory Depth Shallow 07/04/25 21:36 Respiratory Pattern Normal 07/04/25 21:36 Blood Pressure 150/65 H 07/06/25 08:28 Blood Pressure Mean 93 07/06/25 08:28 Pulse Oximetry 99 07/06/25 08:28 Oxygen Delivery Method Room Air 07/06/25 08:28 Oxygen Flow Rate 0 07/06/25 08:28 Pain Level 0 07/06/25 08:56 Comment Vitals taken at admission. 07/04/25 22:51 Intake & Output 07/05/25 07/05/25 07/06/25 11:59 23:59 11:59 Intake Total 290 / 2780 2490 / 2780 400 / 400 Balance 290 / 2780 2490 / 2780 400 / 400 Weight 81.6 kg 81.1 kg Intake: IV 50 / 2300 2250 / 2300 Oral 240 / 480 240 / 480 400 / 400 Other: Urine Color Pale Yellow Yellow Yellow Urine Appearance Clear Clear Clear Urine Odor Normal None Normal Comment Pt voids an immeasurable amount ind. into the toilet. Pt voids an immeasurable amount ind. into the toilet. Pt voids an immeasurable amount ind. into the toilet. Stool Size Moderate Data Completed and Pending Pending Labs at Discharge: 07/04/25 07/04/25 07/04/25 16:52 18:20 18:38 WBC 15.44 H RBC 5.62 H Hgb 15.9 H Hct 48.2 H MCV 86 MCH 28.3 MCHC 33.0 RDW 14.0 Plt Count 402 H MPV 9.6 Immature Gran % 0.2 Neutrophils % 72.1 Lymphocytes % 20.1 Monocytes % 6.5 Eosinophils % 0.5 Basophils % 0.6 Nucleated RBC % 0.0 Absolute Neutrophils 11.13 H Absolute Lymphocytes 3.10 Absolute Monocytes 1.00 H Absolute Eosinophils 0.08 Absolute Basophils 0.09 D-Dimer 479 VBG pH 7.42 H VBG pCO2 41 VBG pO2 36 VBG HCO3 27 VBG Total CO2 23 L VBG O2 Saturation 70 VBG Base Excess 2 VBG Lactate Sodium 141 Potassium 4.2 Chloride 106 Carbon Dioxide 25.8 Anion Gap 9.2 BUN 16 Creatinine 0.53 L Est GFR (CKD-EPI 2020) 112.07 Glucose 121 H Calcium 9.9 Magnesium Total Bilirubin AST ALT Alkaline Phosphatase Troponin I < 3 < 3 Total Protein Albumin Random Vancomycin COVID-19 Source Nasopharynx SARS-CoV-2 (PCR) Negative Influenza Type A (PCR) Negative Influenza Type B (PCR) Negative RSV (PCR) Negative MRSA (TEM-PCR) 07/04/25 07/05/25 07/05/25 20:40 06:20 10:54 WBC 13.19 H RBC 5.07 Hgb 14.6 Hct 43.6 MCV 86 MCH 28.8 MCHC 33.5 RDW 14.2 Plt Count 330 MPV 9.9 Immature Gran % 0.3 Neutrophils % 64.9 Lymphocytes % 25.3 Monocytes % 8.2 Eosinophils % 0.8 Basophils % 0.5 Nucleated RBC % 0.0 Absolute Neutrophils 8.56 H Absolute Lymphocytes 3.34 Absolute Monocytes 1.08 H Absolute Eosinophils 0.11 Absolute Basophils 0.07 D-Dimer VBG pH VBG pCO2 VBG pO2 VBG HCO3 VBG Total CO2 VBG O2 Saturation VBG Base Excess VBG Lactate 0.8 Sodium 141 Potassium 3.8 Chloride 107 Carbon Dioxide 24.1 Anion Gap 9.9 BUN 11 Creatinine 0.46 L Est GFR (CKD-EPI 2020) 131.97 Glucose 99 Calcium 9.4 Magnesium Total Bilirubin 0.80 AST 27 ALT 33 Alkaline Phosphatase 133 H Troponin I Total Protein 6.5 Albumin 4.1 Random Vancomycin COVID-19 Source SARS-CoV-2 (PCR) Influenza Type A (PCR) Influenza Type B (PCR) RSV (PCR) MRSA (TEM-PCR) Negative 07/05/25 07/06/25 12:35 06:25 WBC 11.65 H RBC 5.08 Hgb 14.4 Hct 43.4 MCV 85 MCH 28.3 MCHC 33.2 RDW 14.3 Plt Count 366 MPV 9.7 Immature Gran % 0.3 Neutrophils % 56.3 Lymphocytes % 31.1 Monocytes % 8.7 Eosinophils % 2.8 Basophils % 0.8 Nucleated RBC % 0.0 Absolute Neutrophils 6.56 Absolute Lymphocytes 3.62 H Absolute Monocytes 1.01 H Absolute Eosinophils 0.33 Absolute Basophils 0.09 D-Dimer VBG pH VBG pCO2 VBG pO2 VBG HCO3 VBG Total CO2 VBG O2 Saturation VBG Base Excess VBG Lactate Sodium 142 Potassium 3.9 Chloride 109 H Carbon Dioxide 20.9 Anion Gap 12.1 H BUN 11 Creatinine 0.47 L Est GFR (CKD-EPI 2020) 128.74 Glucose 101 Calcium 9.7 Magnesium 1.7 Total Bilirubin AST ALT Alkaline Phosphatase Troponin I Total Protein Albumin Random Vancomycin 10.4 COVID-19 Source SARS-CoV-2 (PCR) Influenza Type A (PCR) Influenza Type B (PCR) RSV (PCR) MRSA (TEM-PCR) Preliminary micro results at discharge 07/05/25 11:30 Sputum Sputum Culture - Preliminary Normal Ingrid 07/04/25 22:30 Blood Blood Culture - Preliminary NO GROWTH 24 HOURS 07/04/25 22:15 Blood Blood Culture - Preliminary NO GROWTH 24 HOURS PFSH All Active Problems (Updated 07/05/25 @ 17:25 by Tanisha Lang APRN) On deep vein thrombosis (DVT) prophylaxis (Acute) Prurigo nodularis (Acute) Sepsis (Acute) Pneumonia (Acute) Left-sided epistaxis (Acute) Medical History (Updated 07/05/25 @ 17:25 by Tanisha Lang APRN) Weakness of both lower limbs Age-related nuclear cataract, bilateral Retinal artery branch occlusion, bilateral Spleen absent Osteopenia Neuropathic pain Disorder of spinal region Spinal stenosis of lumbar region Idiopathic osteoarthritis Pruritic rash Mass of ovary Postoperative malabsorption Cholesterolosis of gallbladder GERD (gastroesophageal reflux disease) Atherosclerosis of artery Left anterior fascicular block (LAFB) Meibomian gland dysfunction (MGD) Primary angle-closure glaucoma Demyelinating disease of central nervous system Anxiety Simple obesity Mixed hyperlipidemia Vitamin D deficiency Splenic marginal zone b-cell lymphoma Appendicitis Iron deficiency anemia Splenomegaly Atypical chest pain Cervical stenosis of spinal canal Radiculopathy of cervical region Chest pain Nausea without vomiting Stenosis of cervical spine with myelopathy Spondylolisthesis at L3-L4 level Solar lentigo Xerosis cutis Lymphocytic colitis Diarrhea Diverticulitis of sigmoid colon Right knee pain Osteoarthritis of knee Lichen planus Rotator cuff tear Hearing loss Vertigo Depression Chronic neck pain HTN (hypertension) Fibromyalgia Shoulder pain Surgical History (Updated 03/08/25 @ 13:26 by Elisa Contreras RN) History of carpal tunnel surgery Status post lumbar laminectomy History of splenectomy History of lysis of adhesions History of appendectomy History of laser iridotomy History of total right knee replacement (TKR) History of gastric bypass History of rotator cuff surgery Personal history of spine surgery primary anterior decompression of cervical spinal cord and fusion posterior decompression lumbar spine and fusion Family History (Updated 03/08/25 @ 13:28 by Elisa Diane, RN) Mother Heart disease Stroke Uterine cancer Father COPD (chronic obstructive pulmonary disease) Social History Smoking/Tobacco Use Status: Former Tobacco Use Quit Date: 05/04/93 Smoking risk assessment performed?: Yes Alcohol Intake: never Drug use: Never Substance use type: does not use Housing: house Do you feel safe at home: Yes Do you feel safe in your relationship?: Yes Time Spent with Patient Time Spent with Patient: <45 minutes Time was spent: preparing to see the patient(eg.review tests), obtaining and/or reviewing separately otained hiistory, ordering medications,tests, procedures and counseling the patient
--- NOTE | 2025-07-06 10:56 | PDOC.CMDIS ---
Date of service: 07/06/25 Time of Service: 10:56 LACE Index Scoring Tool Questions: Length of Stay (in days): 2 Was the patient admitted via the E.D.?: Yes E.D. Visits: 2 Answers: Total Score: 7 Risk of Readmission: Low Risk Care Management Discharge Plan Reason for Hospitalization: hypoxia Discharge Plan: Beata will be discharged home today and no new services are indicated. It is recommended she follow up with her community providers and discharge plan of care. She will transport via private vehicle. Patient/Family Education Needs: Review of discharge instructions, activity, limitations, and plan of care. Discuss ask me three.
== END 2025-07-06 11:43 | disposition home or self-care (01) | DRG 871 ==
LOC: ER 16:54 → MS 21:17
PROVIDERS: Emergency Medicine; Nurse Practitioner Acute Care; Admitting Provider Hospitalist; Emergency Provider Physician Assistant; PCP Family Medicine; Responsible Provider Nurse Practitioner Acute Care; Visit Provider Hospitalist
DX: J18.9 Pneumonia, unspecified organism (principal); I10 Essential (primary) hypertension; E78.2 Mixed hyperlipidemia; M79.7 Fibromyalgia; Z66 Do not resuscitate; A41.9 Sepsis, unspecified organism; Z79.899 Other long term (current) drug therapy; M85.80 Other specified disorders of bone density and structure, unspecified site; J96.01 Acute respiratory failure with hypoxia; C85.90 Non-Hodgkin lymphoma, unspecified, unspecified site; Z90.81 Acquired absence of spleen; M48.061 Spinal stenosis, lumbar region without neurogenic claudication; K21.9 Gastro-esophageal reflux disease without esophagitis; K82.4 Cholesterolosis of gallbladder; Z98.84 Bariatric surgery status; Z96.651 Presence of right artificial knee joint; D72.829 Elevated white blood cell count, unspecified
CPT/HCPCS: 00123; 36415; 74177; 80048; 80053; 82805; 87040; 87637; 87641; 93005; 96361; 96365; 96366; 97161; 99285; J1650; 71045; 71260; 80202; 83605; 83735; 84484; 85025; 85379; 87070; 87205; 93010; 99222; 99233; 99238; J0696; J1956; J3373; J3490